=== PATIENT | female | born 1970 | race Caucasian/White ===

== ENCOUNTER → 2016-03-09 | Outpatient (CLI) | payer BC ==
[~2016-03-09] MED LIST: ALBU18002 INH; AMOX875T PO; ANTICRE6 PO; AUGMENTIN PO; CEPH500C2 PO; DALF10TA PO; GLAT1INJ INJ; HYDR-5688 PO; MULT-506 PO; MULT1CHW37 PO; ONDA4TAB10 SL; PRED10TA PO; PRED20TA PO; VNTHFA/IN INH
== END | disposition home or self-care (01) ==
LOC: C.PAPS 09:35
PROVIDERS: ATTEND Obstetrics & Gynecology
DX: Z01.419 Encounter for gynecological examination (general) (routine) without abnormal findings (principal)

== ENCOUNTER 2016-03-19 09:57 | Inpatient (IN) | payer BC, OTHER ==
[2016-03-19] VITALS (10 sets, daily range): BP systolic 82–118; BP diastolic 49–76; PULSE 109–120; TEMP 36.9–38.3; O2SAT 93–98; Ht 167.6 cm; Wt 72.7 kg
[~2016-03-19] VITALS: Ht 167.6 cm; Wt 72.7 kg
[~2016-03-19 09:57] MED LIST changes: -ALBU18002 INH; -AMOX875T PO; -ANTICRE6 PO; -AUGMENTIN PO; -CEPH500C2 PO; -DALF10TA PO; -GLAT1INJ INJ; -HYDR-5688 PO; -MULT1CHW37 PO; -ONDA4TAB10 SL; -PRED10TA PO; -PRED20TA PO
[2016-03-19] MEDS ORDERED: SODIUM CHLORIDE 0.9% 1000ML 1,000 ML IV STA ×2 (10:12→12:27)
[2016-03-19] MEDS ORDERED: MoRPHine SULFATE 10 MG/ML CARP/VIAL IV STA (10:12)
[2016-03-19] MEDS ORDERED: ONDANSETRON INJ 2 MG/ML 2 ML VIAL IV STA (10:12)
[2016-03-19 10:34] LABS: HEMATOCRIT 37.8 % (37-47); MEAN CELL VOLUME 86.5 fL (80-100); MEAN CORPUSCULAR HEMOGLOBIN 29.5 pg (25-34); MEAN CORPUSCULAR HGB CONC 34.1 g/dl (32-36); MEAN PLATELET VOLUME 9.2 fL (7.4-10.4); PLATELET COUNT 411 K/uL (130-400); RED BLOOD COUNT 4.37 M/uL (4.2-5.4); WHITE BLOOD COUNT 25.98 K/uL (4.8-10.8)
[2016-03-19] MEDS ORDERED: PIPERACILLIN/TAZOBACTAM 4.5 GM/100ML D5W IV STA (10:51)
[2016-03-19 10:57] LABS: ALT/SGPT 25 U/L (12-78); BLOOD UREA NITROGEN 12 mg/dl (7-18); CALCIUM 9.4 mg/dl (8.5-10.1); CARBON DIOXIDE 22 mmol/L (21-32); CHLORIDE 101 mmol/L (98-107); CREATININE 0.71 mg/dl (0.60-1.20); GLUCOSE 120 mg/dl (70-99); POTASSIUM 3.9 mmol/L (3.5-5.1); SODIUM 137 mmol/L (136-145)
[2016-03-19 11:00] LABS: ALKALINE PHOSPHATASE 156 U/L (45-117); AST/SGOT 15 U/L (15-37)
[2016-03-19 11:20] LABS: BASO % 0.2 %; BASO ABS # 0.05 K/uL (0-0.2); COMPLETE YES; EOS % 0.2 %; IG% 0.7 %; LYMPH % 12.3 %; NEUT % 73.6 %
--- NOTE | 2016-03-19 12:12 | DIAGNOSTIC IMAGING REPORT ---
CT SCAN OF THE PELVIS WITH IV CONTRAST CLINICAL HISTORY: Perianal pain. Abscess. COMPARISON STUDY: No priors. TECHNIQUE: Following the IV administration of 119 cc of Optiray 320, CT scan of the pelvis is performed from the pelvic inlet to the proximal femora. Images are reviewed in the axial, sagittal, and coronal planes. IV contrast was administered without complication. CT DOSE: 279.84 mGy.cm FINDINGS: The bladder, uterus, and adnexa are normal as visualized. There are small ovarian follicles. No free fluid is seen in the pelvis. There is significant induration an inflammatory stranding identified surrounding the perianal soft tissues. There is a large and thick-walled/peripherally enhancing multiloculated left-sided perianal fluid collection. This is located below the levator sling and extends from the 11:00 to the 5:00 position, and extends into the medial aspect of the left upper thigh. This complex multiloculated collection measures approximately 7 x 6 x 4.5 cm in aggregate dimension. There is surrounding inflammatory change in the perineal fat with overlying dermal thickening consistent with cellulitis. No fistulous tract is identified. The rectum and the visualized colon are normal in appearance. There is moderate colonic fecal retention. The iliac vessels appear patent. The bony pelvis is intact. No lytic or blastic lesions are seen. A prominent left pelvic sidewall lymph node image #125 measures 10 mm short axis. Prominent iliac chain nodes measure up to 7 mm short axis. A left external iliac node on image #163 measures 1.4 cm in short axis. Prominent perirectal nodes measure up to 9 mm. There is no inguinal lymphadenopathy. IMPRESSION: 1. Findings are consistent with a large and multiloculated left-sided perianal abscess with overlying cellulitis as detailed above. This measures approximately 7 x 6 x 4.5 cm. 2. No fistulous tract is identified. 3. Prominent left pelvic sidewall, perirectal, and iliac chain lymph nodes are likely on a reactive basis. Electronically signed by: Parker Winston M.D. 03/19/2016 12:11 PM Dictated Date/Time: 03/19/2016 12:02 PM
[2016-03-19] MEDS ORDERED: VANCOMYCIN 1GM/270ML NSS IV STA (12:31)
[2016-03-19 12:53] LABS: URINE APPEARANCE CLEAR (CLEAR); URINE BILIRUBIN NEG (NEG); URINE COLOR YELLOW; URINE EPITHELIAL CELL AUTO >30 /lpf (0-5); URINE NITRITE POS (NEG); URINE SPECIFIC GRAVITY 1.036 (1.000-1.030); UROBILINOGEN NEG (NEG); ZZUR CULT IF INDIC CLEAN CATCH YES
[2016-03-19 12:57] LABS: MANUAL MICROSCOPIC REQUIRED? NO; REVIEW REQ? NO
[2016-03-19] MEDS ORDERED: VANCOMYCIN INJ 1,300 MG in SODIUM CHLORIDE 0.9% 250ML 250 ML IV ONE (13:00)
[2016-03-19] MEDS ORDERED: MoRPHine SULFATE 2 MG/ML CARP IV PRN (13:15)
[2016-03-19] MEDS ORDERED: ALBUTEROL HFA 8 GM INHALER INH PRN (13:15)
--- NOTE | 2016-03-19 13:21 | History and Physical ---
History & Physical Date Mar 19, 2016. History of Present Illness The patient is a 46 year old female with complaints of Lt perianal pain Past Medical/Surgical History Medical Problems: (1) PROM (premature rupture of membranes) occasional asthma recent delivery- 2015 Additional History Hepatic Disease: No Endocrine Disorder: No Kidney Disease: No Hypertension: No Heart Disease: No Bleeding Tendencies: No Infectious Diseases: Yes Other: Lt perirectal abscess Allergies Coded Allergies: Clindamycin (Verified Allergy, Unknown, ., 01/25/16) Molds & Smuts (Verified Allergy, Unknown, MOLD/POLLEN--SNEEZING/WATERY EYES, 01/25/16) POLLEN (Verified Allergy, Unknown, MOLD/POLLEN--SNEEZING/WATERY EYES, ) Home Medications No Active Prescriptions or Reported Meds Physical Examination Skin: warm/dry, no rash Head: atraumatic Neck: supple Respiratory/Chest: no respiratory distress Cardiovascular: regular rate, rhythm Abdomen / GI: non tender Back: normal inspection Genitourinary - Female: + pertinent finding (Lt perianal, labial erythema, induration) Addiitonal Comments: Review of systems- see HPI, 10 other systems negative Diagnosis Lt perirectal abscess Plan of Treatment for Incision and drainage of perirectal abscess admit pt- 24-48 hrs atbx
[2016-03-19] MEDS: MoRPHine SULFATE 4 MG/ML 1 ML CARP\\VIAL IV PRN ×2 (14:03→16:15)
[2016-03-19] MEDS ORDERED: IV FLUIDS COMPLETED PRN (15:15)
[2016-03-19] MEDS ORDERED: NURSING VERBAL MED ORDER ONE (16:15)
[2016-03-19] MEDS: LACTATED RINGER'S 1000ML 1,000 ML IV SCH (16:15)
[2016-03-19] MEDS ORDERED: MoRPHine SULFATE 4 MG/ML 1 ML CARP\\VIAL IV SCH (16:15)
[2016-03-19] MEDS ORDERED: PIPERACILL/TAZOBAC IV 3.375 GM in DEXTROSE 5% 100ML IV ONE (16:30)
[2016-03-19] MEDS ORDERED: PIPERACILL/TAZOBAC CONSULT ACTIVE PRN (16:30)
--- NOTE | 2016-03-19 16:41 | EMERGENCY ROOM VISIT NOTE ---
History Report prepared by Calin: Hanna Blackman Under the Supervision of: Dr. Francisco Javier Alexandre D.O. First contact with patient: 10:04 Chief Complaint: WOUND INFECTION Stated Complaint: ABSCESS NEAR ANUS Nursing Triage Summary: pt c.o rectal abscess. refuses to sit sttaes difficult to walk will not sit History of Present Illness The patient is a 46 year old female who presents to the Emergency Room with complaints of a worsening rectal abscess that started one week ago. The pain is worse when she sits down. The patient was seen at the [facility] earlier today and they diagnosed her with a rectal abscess then she came into the ED. They did not do an internal rectal exam there. She has never experienced this in the past. The patient states that she has not had a bowel movement for the past 3 days, so she has been taking stool softeners. She denies fevers, but states that she has been experiencing "shaking" like she has the chills. She also denies abdominal pain, nausea, vomiting, pain or burning with urination, and vaginal bleeding or discharge. Source of History: patient Onset: one week ago Position: other (rectum) Quality: other (abscess) Timing: worsening Modifying Factors (Worsening): other (sitting) Associated Symptoms: + chills, No abdominal pain, No fevers, No nausea, No urinary symptoms (pain or burning with urination), No vomiting Note: no vaginal bleeding or discharge Review of Systems See HPI for pertinent positives & negatives. A total of 10 systems reviewed and were otherwise negative. Past Medical & Surgical Medical Problems: (1) Perirectal abscess (2) PROM (premature rupture of membranes) Family History No pertinent family history Social History Smoking Status: Never Smoker Marital Status: single Housing Status: lives with significant other Occupation Status: employed Current/Historical Medications No Active Prescriptions or Reported Meds Allergies Coded Allergies: Clindamycin (Verified Allergy, Unknown, ., 01/25/16) Molds & Smuts (Verified Allergy, Unknown, MOLD/POLLEN--SNEEZING/WATERY EYES, 01/25/16) POLLEN (Verified Allergy, Unknown, MOLD/POLLEN--SNEEZING/WATERY EYES, ) Physical Exam Vital Signs Date Time Temp Pulse Resp B/P Pulse Ox O2 Delivery O2 Flow Rate FiO2 03/19/16 14:06 78 20 116/77 95 03/19/16 11:47 112 20 107/70 91 Room Air 03/19/16 10:02 36.6 148 18 104/55 93 Room Air Physical Exam GENERAL: alert, uncomfortable appearing, well nourished, moderate distress, non- toxic EYE EXAM: normal conjunctiva OROPHARYNX: no exudate, no erythema, lips, buccal mucosa, and tongue normal and mucous membranes are moist NECK: supple, no nuchal rigidity, no adenopathy, non-tender LUNGS: Clear to auscultation. Normal chest wall mechanics HEART: no murmurs, S1 normal and S2 normal ABDOMEN: abdomen soft, non-tender, normo-active bowel sounds, no masses, no rebound or guarding. BACK: Back is symmetrical on inspection and there is no deformity, no midline tenderness, no CVA tenderness. SKIN: no rashes and no bruising UPPER EXTREMITIES: upper extremities are grossly normal. LOWER EXTREMITIES: No pitting edema. RECTAL: Erythema just anterior to rectum with tracking to inferior portion of labia majora, mild firmness, no obvious discharge, no masses appreciated on rectal exam. NEURO EXAM: Normal sensorium, cranial nerves II-XII grossly intact, normal speech, no gross weakness of arms, no gross weakness of legs. Medical Decision & Procedures ER Provider Diagnostic Interpretation: CT results have been interpreted by the radiologist and reviewed by me. CT SCAN OF THE PELVIS WITH IV CONTRAST IMPRESSION: 1. Findings are consistent with a large and multiloculated left-sided perianal abscess with overlying cellulitis as detailed above. This measures approximately 7 x 6 x 4.5 cm. 2. No fistulous tract is identified. 3. Prominent left pelvic sidewall, perirectal, and iliac chain lymph nodes are likely on a reactive basis. Electronically signed by: Parker Winston M.D. 03/19/2016 12:11 PM Dictated Date/Time: 03/19/2016 12:02 PM Laboratory Results 03/19/16 10:25 Red Blood Count 4.37, Mean Corpuscular Volume 86.5, Mean Corpuscular Hemoglobin 29.5, Mean Corpuscular Hemoglobin Concent 34.1, Mean Platelet Volume 9.2, Neutrophils (%) (Auto) 73.6, Lymphocytes (%) (Auto) 12.3, Monocytes (%) (Auto) 13.0, Eosinophils (%) (Auto) 0.2, Basophils (%) (Auto) 0.2, Neutrophils # (Auto ) 19.13, Lymphocytes # (Auto) 3.20, Monocytes # (Auto) 3.39, Eosinophils # (Auto ) 0.04, Basophils # (Auto) 0.05 03/19/16 10:25 Test 03/19/16 10:25 03/19/16 12:05 White Blood Count 25.98 K/uL (4.8-10.8) Red Blood Count 4.37 M/uL (4.2-5.4) Hemoglobin 12.9 g/dL (12.0-16.0) Hematocrit 37.8 % (37-47) Mean Corpuscular Volume 86.5 fL (80-100) Mean Corpuscular Hemoglobin 29.5 pg (25-34) Mean Corpuscular Hemoglobin Concent 34.1 g/dl (32-36) Platelet Count 411 K/uL (130-400) Mean Platelet Volume 9.2 fL (7.4-10.4) Neutrophils (%) (Auto) 73.6 % Lymphocytes (%) (Auto) 12.3 % Monocytes (%) (Auto) 13.0 % Eosinophils (%) (Auto) 0.2 % Basophils (%) (Auto) 0.2 % Neutrophils # (Auto) 19.13 K/uL (1.4-6.5) Lymphocytes # (Auto) 3.20 K/uL (1.2-3.4) Monocytes # (Auto) 3.39 K/uL (0.11-0.59) Eosinophils # (Auto) 0.04 K/uL (0-0.5) Basophils # (Auto) 0.05 K/uL (0-0.2) RDW Standard Deviation 42.6 fL (36.4-46.3) RDW Coefficient of Variation 13.4 % (11.5-14.5) Immature Granulocyte % (Auto) 0.7 % Immature Granulocyte # (Auto) 0.17 K/uL (0.00-0.02) Anion Gap 14.0 mmol/L (3-11) Est Creatinine Clear Calc Drug Dose 94.6 ml/min Estimated GFR () 120.1 Estimated GFR (Non- 103.6 BUN/Creatinine Ratio 17.0 (10-20) Calcium Level 9.4 mg/dl (8.5-10.1) Total Bilirubin 0.2 mg/dl (0.2-1) Direct Bilirubin < 0.1 mg/dl (0-0.2) Aspartate Amino Transf (AST/SGOT) 15 U/L (15-37) Alanine Aminotransferase (ALT/SGPT) 25 U/L (12-78) Alkaline Phosphatase 156 U/L (45-117) Total Protein 8.4 gm/dl (6.4-8.2) Albumin 3.0 gm/dl (3.4-5.0) Lipase 111 U/L (73-393) Urine Color YELLOW Urine Appearance CLEAR (CLEAR) Urine pH 5.0 (4.5-7.5) Urine Specific [place] 1.036 (1.000-1.030) Urine Protein NEG (NEG) Urine Glucose (UA) NEG (NEG) Urine Ketones NEG (NEG) Urine Occult Blood 1+ (NEG) Urine Nitrite POS (NEG) Urine Bilirubin NEG (NEG) Urine Urobilinogen NEG (NEG) Urine Leukocyte Esterase MODERATE (NEG) Urine WBC (Auto) >30 /hpf (0-5) Urine RBC (Auto) 0-4 /hpf (0-4) Urine Hyaline Casts (Auto) 1-5 /lpf (0-5) Urine Epithelial Cells (Auto) >30 /lpf (0-5) Urine Bacteria (Auto) 2+ (NEG) Urine Test NEG (NEG) Laboratory results per my review. Medications Administered Medications (Trade) Dose Ordered Sig/Ranjeet Route Start Time Stop Time Status Last Admin Dose Admin Sodium Chloride (Nss 1000ml) 1,000 ml @ 999 mls/hr Q1H1M STAT IV 03/19/16 10:12 03/19/16 11:12 DC 03/19/16 10:28 999 MLS/HR Ondansetron HCl (Zofran Inj) 4 mg NOW STAT IV 03/19/16 10:12 03/19/16 10:15 DC 03/19/16 10:27 4 MG Morphine Sulfate (MoRPHine SULFATE INJ) 6 mg NOW STAT IV 03/19/16 10:12 03/19/16 10:15 DC 03/19/16 10:28 6 MG Piperacillin Sod/ Tazobactam Sod 4.5 gm 4.5 gm NOW STAT IV 03/19/16 10:51 03/19/16 10:52 DC 03/19/16 11:02 4.5 GM Sodium Chloride 1,000 ml @ 999 mls/hr Q1H1M STAT IV 03/19/16 12:27 03/19/16 13:27 DC 03/19/16 12:31 999 MLS/HR Vancomycin HCl/ Sodium Chloride (Vancomycin Inj/ Nss 250ml) 276 ml @ 125 mls/hr NOW ONCE IV 03/19/16 13:00 03/19/16 15:12 DC 03/19/16 13:21 125 MLS/HR Morphine Sulfate 4 mg 4 mg Q4H PRN IV 03/19/16 13:15 04/02/16 13:14 03/19/16 16:15 4 MG Lactated Ringer's (Lr 1000ml) 1,000 ml @ 80 mls/hr [id number] IV 03/19/16 14:14 04/18/16 14:13 03/19/16 16:15 80 MLS/HR ED Course ED COURSE: Vital signs were reviewed and showed tachycardia. The patients medical record was reviewed The above diagnostic studies were performed and reviewed. ED treatments and interventions as stated above. 1006: The patient was evaluated in room B12. A complete history and physical examination was performed. 1012: Ordered Morphine Sulfate 6 mg IV, Zofran 4 mg IV, Sodium Chloride 1000 ml @ 999 mls/hr IV 1035: I reassessed the patient. Her pain has improved. 1051: Ordered Zosyn 4.5 gm IV 1104: I reevaluated the patient. She informed me that she gave in December. 1207: I reassessed the patient. She is comfortable and does not want any more pain medicine. 1227: Ordered Sodium Chloride 1000 ml @ 999 mls/hr IV 1229: I reviewed the patient's case with Dr. Cantrell - General Surgery. He will evaluate the patient for further management. 1231: Ordered Vancomycin HCl 1300 gm IV 1242: Upon reevaluation, the patient is resting comfortably. I discussed my findings with the patient and she understands and agrees with the treatment plan. Dr. Cantrell is at bedside. Based on the patients age, coexisting illnesses, exam and lab findings the decision to treat as an inpatient was made. The patient remained stable while under my care. The patient will be evaluated for further management. Medical Decision Differential diagnosis includes etiologies such as cellulitis, rectal vs perirectal abscess, MRSA infection, DVT, necrotizing fasciitis, dermatitis, drug eruption, as well as others were entertained. Patient is a 46-year-old female who presents the ER for severe pain on her left gluteus. This is been present for the past week. It has been becoming more painful and erythematous; she saw by her PCP and referred into the ER. Upon presentation she is tachycardic with heart rate in the 140s. She has a leukocytosis of 25,000. On exam she does appear to have a large rectal abscess which tracks from around the rectum anteriorly to the labia majora. IV was established and she was given a bolus normal saline along with zosyn and vancomycin. CT of the pelvis shows a 7 x 7 cm by loculated abscess. I discussed this with general surgery who evaluated her in the ER. It was recommended at that time to take her to the OR for incision and drainage. Patient was updated at bedside and remained stable while in the ER. Consults Time Called: 1224 Consulting Physician: Dr. Cantrell - General Surgery Returned Call: [phone] I reviewed the patient's case with Dr. Óscar Trimble Surgery. He will evaluate the patient for further management. Impression Primary Impression: Sepsis Additional Impression: Perirectal abscess Scribe Attestation The scribe's documentation has been prepared under my direction and personally reviewed by me in its entirety. I confirm that the note above accurately reflects all work, treatment, procedures, and medical decision making performed by me. Departure Information Dispostion Being Evaluated By Surgeon Prescriptions No Active Prescriptions or Reported Meds Referrals Shiela Spangler DO (PCP) Patient Instructions My [facility] Problem Qualifiers Primary Impression: Sepsis Sepsis type: sepsis due to unspecified organism Qualified Codes: A41.9 - Sepsis, unspecified organism
[2016-03-19] MEDS ORDERED: VANCOMYCIN CONSULT ACTIVE PRN (16:45)
--- NOTE | 2016-03-19 16:52 | Pharmacy Progress Note ---
Pharmacy Antibiotic Consult Date of Service: Mar 19, 2016. Pharmacy Dosing Scope Pharmacy is consulted to initiate Vanco/Zosyn IV dosing therapy, order appropriate labs and adjust drug dose/frequency. Subjective The patient is a 46 year old female admitted on Mar 19, 2016 at 14:33. Objective Height (Feet): 5 Height (Inches): 6.00 Weight (Kilograms): 63.600 Lab Results (24hrs): Item Value Date Time Est Creatinine Clear Calc Drug Dose 94.6 ml/min 03/19/16 1025 Creatinine 0.71 mg/dl 03/19/16 1025 Laboratory Tests Test 03/19/16 10:25 BUN/Creatinine Ratio 17.0 Blood Urea Nitrogen 12 mg/dl Creatinine 0.71 mg/dl White Blood Count 25.98 K/uL Red Blood Count 4.37 M/uL Hemoglobin 12.9 g/dL Hematocrit 37.8 % Mean Corpuscular Volume 86.5 fL Mean Corpuscular Hemoglobin 29.5 pg Mean Corpuscular Hemoglobin Concent 34.1 g/dl Platelet Count 411 K/uL Mean Platelet Volume 9.2 fL Neutrophils (%) (Auto) 73.6 % Lymphocytes (%) (Auto) 12.3 % Monocytes (%) (Auto) 13.0 % Eosinophils (%) (Auto) 0.2 % Basophils (%) (Auto) 0.2 % Neutrophils # (Auto) 19.13 K/uL Lymphocytes # (Auto) 3.20 K/uL Monocytes # (Auto) 3.39 K/uL Eosinophils # (Auto) 0.04 K/uL Basophils # (Auto) 0.05 K/uL Micro Results: Item Value Date Time Urine Culture Received 03/19/16 1205 Urine , Clean Catch Pending Assessment & Plan Pt is a 46yo F p/w severe pxn of her left gluteus, tachycardia, leukocytosis w/ left shift. Per ED notes she appears to have a rectal abscess. She is now being empirically treated with IV Vanco/Zosyn. Pt population p'kinetics: t1/2=8.3hrs , ke=0.0833. UC are pending. Pt is set to go to the OR for drainage, will see what those c/s's yield before de-escalating. Vanco * Loading dose: Vanco 1300mg (20mg/kg) IV X 1 dose then received in ED @1321: * Vanco 1000mg(15mg/kg) IV every 10 hours. * Goal trough level estimate: between 15 - 20 mcg/mL until c/s's result then may consider a lower trough goal range to ensure pt not bacteremic or UTI. * trough level has been ordered for: this will be prior to the 4th dose Zosyn: * Received osyn 4.5g 30 min infsn in ED @1102 * Set to receive EI Zosyn 3.375g q8, appropriate for eCrCl>20cc/min and clinical status. Pharmacy will continue to follow and will adjust dose/frequency as necessary. Thank you
[2016-03-19] MEDS: PIPERACILL/TAZOBAC IV 3.375 GM in DEXTROSE 5% 100ML 100 ML IV SCH (17:00)
[2016-03-19] MEDS ORDERED: ATROPINE SULFATE 0.1 MG/ML 5ML SYR IV PRN (18:00)
[2016-03-19] MEDS ORDERED: LABETALOL HCL IV 5 MG/ML 20ML IV PRN (18:00)
[2016-03-19] MEDS ORDERED: MEPERIDINE HCL 25 MG/ML CARP IV PRN (18:00)
[2016-03-19] MEDS ORDERED: MIDAZOLAM HCL 1 MG/ML 2ML VIAL ONE (18:00)
[2016-03-19] MEDS ORDERED: FENTANYL CITRATE INJ 50 MCG/1 ML 2 ML VIAL IV PRN (18:00)
[2016-03-19] MEDS ORDERED: ONDANSETRON INJ 2 MG/ML 2 ML VIAL IV PRN ×2 (18:00→19:00)
[2016-03-19] MEDS ORDERED: EpHEDrine SULFATE INJ 50 MG/ML AMP IV PRN (18:00)
[2016-03-19] MEDS ORDERED: HYDROmorphone INJ 1 MG/ML SYR IV PRN ×2 (18:00→19:00)
[2016-03-19] MEDS ORDERED: FENTANYL CITRATE INJ 50 MCG/1 ML 2 ML VIAL ONE ×2 (18:01→18:26)
[2016-03-19] MEDS ORDERED: PROPOFOL IV EMULSION 10 MG/ML 20 ML VIAL IV ONE (18:19)
[2016-03-19] MEDS ORDERED: LIDOCAINE HCL 2% 2 ML VIAL (20MG/ML) ONE (18:19)
[2016-03-19] MEDS ORDERED: ONDANSETRON INJ 2 MG/ML 2 ML VIAL ONE (18:22)
--- NOTE | 2016-03-19 18:47 | [facility] Operative Report ---
Operative Report Operative Date Mar 19, 2016. Pre-Operative Diagnosis Left perirectal abscess Post-Operative Diagnosis same Procedure(s) Performed incision and drainage perirectal abscess Surgeon Dr. Cantrell Pill Coater Surgeon(s) None Estimated Blood Loss 15ml Findings deep cavity w/ significant purulent fluid Specimens Culture #1: Perirectal abscess for routine culture & sensitivity, anaerobic/anaerobic Drains guillermo Anesthesia gen Complication(s) None Disposition Recovery Room / PACU I attest to the content of the Intraoperative Record and any orders documented therein. Any exceptions are noted below.
[2016-03-19] MEDS ORDERED: HYDROmorphone INJ 0.5 MG/0.5 ML SYR IV PRN (19:00)
[2016-03-19] MEDS ORDERED: PROMETHAZINE HCL INJ 25 MG in SODIUM CHLORIDE 0.9% 50ML 50 ML IV PRN (19:00)
[2016-03-19] MEDS ORDERED: HYDROCODONE/ACETAMOPHEN 5/325MG TAB PO PRN ×2 (19:00)
[2016-03-19] MEDS ORDERED: KETOROLAC TROMETHAMINE 30 MG/ML VIAL ONE (19:01)
[2016-03-19] MEDS ORDERED: BUPIVACAINE 0.5 % 5 MG/1 ML MPF 30ML VIAL INJ ONE (19:04)
--- NOTE | 2016-03-19 19:26 | Anesthesiology Progress Note ---
Anesthesia Post Op Note Date & Time Mar 19, 2016 at 19:26 Vital Signs Pain Intensity: 1 Vital Signs Past 12 Hours Date Time Temp Pulse Resp B/P Pulse Ox O2 Delivery O2 Flow Rate FiO2 03/19/16 19:20 118 18 109/65 99 Nasal Cannula 3 03/19/16 19:10 109 14 120/73 99 Nasal Cannula 3 03/19/16 19:00 115 14 116/73 99 Nasal Cannula 3 03/19/16 18:50 38.4 122 14 120/66 99 Nasal Cannula 3 03/19/16 17:09 36.9 110 16 118/76 95 Room Air 03/19/16 14:06 78 20 116/77 95 03/19/16 11:47 112 20 107/70 91 Room Air 03/19/16 10:02 36.6 148 18 104/55 93 Room Air Notes Mental Status: alert / awake / arousable, participated in evaluation Pt Amnestic to Procedure: Yes Nausea / Vomiting: adequately controlled Pain: adequately controlled Airway Patency, RR, SpO2: stable & adequate BP & HR: stable & adequate Hydration State: stable & adequate Anesthetic Complications: no major complications apparent
[2016-03-19] MEDS ORDERED: ACETAMINOPHEN 325 MG TAB PO PRN (19:30)
--- NOTE | 2016-03-19 19:35 | OPERATIVE REPORT ---
DATE OF OPERATION: 03/19/2016 NAME OF OPERATION: Incision and drainage of perirectal abscess, complex. PREOPERATIVE DIAGNOSIS: Perirectal abscess. POSTOPERATIVE DIAGNOSIS: Same. STAFF SURGEON: Aden Cantrell MD ANESTHESIA: General with 0.5% plain Marcaine. PROCEDURE: The patient was brought in the operating room and placed on the operating table in supine position. Her legs were then placed into stirrups. Her perineum prepped and draped in usual fashion. She had significant induration and fluctuance in the left side perianal area. On CT scan the abscess cavity was approximately 7.5 cm in depth up to the rectum. Incision was made after using 0.5% plain Marcaine approximately 2 cm in length with encountering significant amount of purulent fluid which was sent for culture. The cavity was then probed with my finger and septations broken up, it was then irrigated with saline solution and then a Sera drain placed deep into the cavity, secured to the skin using 4-0 nylon suture and then a bulky dressing applied. The patient was transferred to recovery room in stable condition. I attest to the content of the Intraoperative Record and any orders documented therein. Any exceptio ns are noted below.
[2016-03-19] MEDS ORDERED: PROMETHAZINE HCL INJ 12.5 MG in SODIUM CHLORIDE 0.9% 50ML 50 ML IV PRN (19:45)
[2016-03-19] MEDS: VANCOMYCIN INJ 1,000 MG in SODIUM CHLORIDE 0.9% 250ML 250 ML IV SCH (20:03)
[2016-03-19] MEDS: METRONIDAZOLE / NSS 500 MG in PREMIXED NSS 100 ML IV SCH (20:03)
[2016-03-19] MEDS: DOCUSATE SODIUM/SENNA 50/8.6MG TAB PO SCH (20:39)
[2016-03-19] MEDS ORDERED: PIPERACILL/TAZOBAC IV 3.375 GM in DEXTROSE 5% 100ML 100 ML IV SCH ×4 (22:00)
[2016-03-20] VITALS (13 sets, daily range): BP systolic 88–112; BP diastolic 56–73; PULSE 79–112; TEMP 36.6–37.1; O2SAT 82–98
[2016-03-20] MEDS: PIPERACILL/TAZOBAC IV 3.375 GM in DEXTROSE 5% 100ML 100 ML IV SCH ×3 (01:28→17:21)
[2016-03-20] MEDS: KETOROLAC TROMETHAMINE 30 MG/ML VIAL IV. SCH ×4 (01:28→18:55)
[2016-03-20] MEDS: METRONIDAZOLE / NSS 500 MG in PREMIXED NSS 100 ML IV SCH ×3 (04:02→20:25)
[2016-03-20] MEDS ORDERED: LACTATED RINGER'S 1000ML 1,000 ML IV SCH (05:15)
--- NOTE | 2016-03-20 05:30 | Surgery Progress Note ---
Surgery Progress Note Date of Service Mar 20, 2016. Subjective Post OP Day: 1 feeling better- less pain mild tachy, awake , alert Objective Vital Signs: Date Time Temp Pulse Resp B/P Pulse Ox O2 Delivery O2 Flow Rate FiO2 03/20/16 03:05 36.9 97 16 95/61 93 Nasal Cannula 2.0 03/19/16 23:23 37.6 109 16 88/53 94 Nasal Cannula 2.0 03/19/16 22:48 37.6 120 14 82/49 94 Nasal Cannula 2.0 03/19/16 22:34 94/60 03/19/16 22:31 37.5 116 16 83/51 94 Nasal Cannula 2.0 03/19/16 21:39 37.2 119 16 91/54 93 Nasal Cannula 2.0 03/19/16 20:45 37.4 116 18 89/56 94 Nasal Cannula 2.0 03/19/16 20:15 37.4 112 16 100/63 94 Nasal Cannula 2.0 03/19/16 19:45 38.3 117 16 100/62 98 Nasal Cannula 2.0 03/19/16 19:40 96 Nasal Cannula 2.0 03/19/16 19:30 38.4 113 18 115/68 99 Nasal Cannula 3 03/19/16 19:20 118 18 109/65 99 Nasal Cannula 3 03/19/16 19:10 109 14 120/73 99 Nasal Cannula 3 03/19/16 19:00 115 14 116/73 99 Nasal Cannula 3 03/19/16 18:50 38.4 122 14 120/66 99 Nasal Cannula 3 03/19/16 17:09 36.9 110 16 118/76 95 Room Air 03/19/16 14:06 78 20 116/77 95 03/19/16 11:47 112 20 107/70 91 Room Air 03/19/16 10:02 36.6 148 18 104/55 93 Room Air General Appearance: no apparent distress Respiratory/Chest: no respiratory distress Cardiovascular: + tachycardia (reg rhythm) Incision(s): drainage (expected) Laboratory Results: Results Past 24 Hours Test 03/19/16 10:25 03/19/16 12:05 Range/Units White Blood Count 25.98 4.8-10.8 K/uL Red Blood Count 4.37 4.2-5.4 M/uL Hemoglobin 12.9 12.0-16.0 g/dL Hematocrit 37.8 37-47 % Mean Corpuscular Volume 86.5 80-100 fL Mean Corpuscular Hemoglobin 29.5 25-34 pg Mean Corpuscular Hemoglobin Concent 34.1 32-36 g/dl Platelet Count 411 130-400 K/uL Mean Platelet Volume 9.2 7.4-10.4 fL Neutrophils (%) (Auto) 73.6 % Lymphocytes (%) (Auto) 12.3 % Monocytes (%) (Auto) 13.0 % Eosinophils (%) (Auto) 0.2 % Basophils (%) (Auto) 0.2 % Neutrophils # (Auto) 19.13 1.4-6.5 K/uL Lymphocytes # (Auto) 3.20 1.2-3.4 K/uL Monocytes # (Auto) 3.39 0.11-0.59 K/uL Eosinophils # (Auto) 0.04 0-0.5 K/uL Basophils # (Auto) 0.05 0-0.2 K/uL RDW Standard Deviation 42.6 36.4-46.3 fL RDW Coefficient of Variation 13.4 11.5-14.5 % Immature Granulocyte % (Auto) 0.7 % Immature Granulocyte # (Auto) 0.17 0.00-0.02 K/uL Sodium Level 137 136-145 mmol/L Potassium Level 3.9 3.5-5.1 mmol/L Chloride Level 101 98-107 mmol/L Carbon Dioxide Level 22 21-32 mmol/L Anion Gap 14.0 3-11 mmol/L Blood Urea Nitrogen 12 7-18 mg/dl Creatinine 0.71 0.60-1.20 mg/dl Est Creatinine Clear Calc Drug Dose 94.6 ml/min Estimated GFR () 120.1 Estimated GFR (Non- 103.6 BUN/Creatinine Ratio 17.0 10-20 Random Glucose 120 70-99 mg/dl Calcium Level 9.4 8.5-10.1 mg/dl Total Bilirubin 0.2 0.2-1 mg/dl Direct Bilirubin < 0.1 0-0.2 mg/dl Aspartate Amino Transf (AST/SGOT) 15 15-37 U/L Alanine Aminotransferase (ALT/SGPT) 25 12-78 U/L Alkaline Phosphatase 156 45-117 U/L Total Protein 8.4 6.4-8.2 gm/dl Albumin 3.0 3.4-5.0 gm/dl Lipase 111 73-393 U/L Urine Color YELLOW Urine Appearance CLEAR CLEAR Urine pH 5.0 4.5-7.5 Urine Specific [place] 1.036 1.000-1.030 Urine Protein NEG NEG Urine Glucose (UA) NEG NEG Urine Ketones NEG NEG Urine Occult Blood 1+ NEG Urine Nitrite POS NEG Urine Bilirubin NEG NEG Urine Urobilinogen NEG NEG Urine Leukocyte Esterase MODERATE NEG Urine WBC (Auto) >30 0-5 /hpf Urine RBC (Auto) 0-4 0-4 /hpf Urine Hyaline Casts (Auto) 1-5 0-5 /lpf Urine Epithelial Cells (Auto) >30 0-5 /lpf Urine Bacteria (Auto) 2+ NEG Urine Test NEG NEG Microbiology Results 03/19/16 Urine Culture, Received Pending 03/19/16 Gram Stain, Received Pending 03/19/16 Bacterial Culture, Received Pending Assessment & Plan 03/20/16- s/p I/D Lg perirectal, deep abscess- mild septic parameters- clinically she looks ok- no distress- add IV fluid , cont IV atbx, calix for now
[2016-03-20] MEDS: VANCOMYCIN INJ 1,000 MG in SODIUM CHLORIDE 0.9% 250ML 250 ML IV SCH ×2 (06:03→17:20)
[2016-03-20 06:35] LABS: MEAN CELL VOLUME 88.1 fL (80-100); MEAN CORPUSCULAR HEMOGLOBIN 29.8 pg (25-34); MEAN CORPUSCULAR HGB CONC 33.9 g/dl (32-36); MEAN PLATELET VOLUME 9.2 fL (7.4-10.4); PLATELET COUNT 314 K/uL (130-400); RED BLOOD COUNT 3.52 M/uL (4.2-5.4); WHITE BLOOD COUNT 22.36 K/uL (4.8-10.8)
[2016-03-20 06:46] LABS: INR 1.1 (0.9-1.1); PROTHROMBIN TIME (PATIENT) 11.7 SECONDS (9.0-12.0)
[2016-03-20 07:02] LABS: BUN/CREATININE RATIO 14.3 (10-20); CALCIUM 8.4 mg/dl (8.5-10.1); CREATININE 0.74 mg/dl (0.60-1.20)
[2016-03-20] MEDS: LACTATED RINGER'S 1000ML 1,000 ML IV SCH ×2 (07:44→14:49)
[2016-03-20] MEDS ORDERED: VANCOMYCIN CONSULT ACTIVE PRN (09:08)
--- NOTE | 2016-03-20 09:30 | History and Physical ---
History & Physical pt seen and examed, d/w PA about [facility] points of dignosis and care plan, agreed current management, for details please referral to PA's note I was called to see patient for the consultation because of possible sepsis, 46-year-old with history of asthma and has recent delivered of baby 1 months ago was admitted to Dr. Cantrell service because left perirectal abscess, patient had I&D done yesterday, per report from surgeon the abscess was severe. Patient developed hypoxic, oxygen level as 86% in room air , spiking fever, and hypotensive blood pressure at 80s Surgeon has started IV fluid, patient is on Zosyn and Flexeril When I interviewed with the patient she is awake and alert and orientated, speak full sentence, respiratory rate 18 , heart rate at 80, regular rhythm S1- S2 bilateral lower decrease significant decreased breathing sounds, abdomen was soft, Bilateral hands and fingers mild rubra, possible is new to her, lower extremity no swelling Patient's white count is 22,000 today Basic on the above information was SIRS score is 2, qSOFA score is 1 , with obvious source of infection, patient possible is developing sepsis, I will send blood culture, increased the IV fluid to 150, give Nebulizer treatment, check lactic acid level, add vancomycin to current antibiotics for gram-positive coverage, follow-up chest x-ray and UA I will transfer patient to shelter monitor from because patient may have developing sepsis discussed with primary team.
[2016-03-20] MEDS: HEPARIN SOD 5000 UNIT/0.5 ML CARP SQ SCH ×2 (09:48→22:04)
[2016-03-20] MEDS: DOCUSATE SODIUM/SENNA 50/8.6MG TAB PO SCH ×2 (09:50→22:09)
[2016-03-20] MEDS ORDERED: ALBUT/IPRATROP 3MG/0.5MG NEB 3 ML VIAL INH PRN (10:00)
--- NOTE | 2016-03-20 10:39 | Medical Consult ---
Consultation Date of Consultation: Mar 20, 2016. Attending Physician: Aden Cantrell M.D. Reason for Consultation: Hypotension, hypoxic, possible sepsis History of Present Illness This is a 46 y/o female with a history of multiple sclerosis, asthma, allergic bronchopulmonary aspergillosis, s/p vaginal delivery 01/26/16 who presents s/p perianal abscess I&D with Dr. Cantrell on 03/19 with hypotension, hypoxia, and possible sepsis. The patient had presented to the ED on 03/19 with left gluteus pain and was found to have a large, loculated left perianal abscess with overlying cellulitis. She was taken for an I&D with Dr. Cantrell and admitted for 24-28 hours IV antibiotics. The patient has been tachycardic throughout her entire stay. The patient's blood pressure began to drop last night. Last evening she also developed fevers and chills, although that has resolved this morning. The patient did become hypoxic this morning when weaned off oxygen, dropping as low as 83% on room air. Saturations returned to low 90s promptly after 2L NC was put back on. The patient admits to a wet, productive cough with white sputum, but she states that this is a chronic cough secondary to the aspergillosis and is not new. She also admits to tingling in her hands which is again a chronic condition secondary to her MS. She feels somewhat weak and fatigued and has some mild pain in her perianal region, although the pain is greatly improved compared to when she first came to the ED. The patient has a Balderas catheter in place and just had a small bowel movement prior to examination. The patient currently denies fevers, chills, sweats, chest pain, palpitations, claudication, wheezing, shortness of breath, nausea, vomiting, abdominal pain, dysuria, hematuria, urinary retention, and paralysis. Past Medical/Surgical History Medical Problems: (1) Sepsis Status: Acute Perianal abscess--acute S/p I&D 03/19/16 Multiple sclerosis Asthma Allergic bronchopulmonary aspergillosis S/p vaginal delivery 01/26/16 Family History Diabetes mellitus Hypothyroidism Non-Hodgkin's lymphoma Tuberculosis Social History Smoking Status: Never Smoker Smokeless Tobacco Use: No Alcohol Use: occasionally Drug Use: none Marital Status: Housing Status: lives with family ( and son) Occupation Status: employed Allergies Coded Allergies: Clindamycin (Verified Allergy, Unknown, ., 01/25/16) Molds & Smuts (Verified Allergy, Unknown, MOLD/POLLEN--SNEEZING/WATERY EYES, 01/25/16) POLLEN (Verified Allergy, Unknown, MOLD/POLLEN--SNEEZING/WATERY EYES, ) Current Inpatient Medications Current Inpatient Medications Medications (Trade) Dose Ordered Sig/Ranjeet Route Start Time Stop Time Status Last Admin Dose Admin Albuterol 2 puffs 2 puffs Q4 PRN INH 03/19/16 13:15 04/18/16 13:14 Lactated Ringer's (Lr 1000ml) 1,000 ml @ 150 mls/hr Q6H40M IV 03/19/16 14:14 04/18/16 14:13 03/20/16 07:44 80 MLS/HR Miscellaneous (Iv Fluids Completed) 1 ea PRN PRN N/A 03/19/16 15:15 03/19/17 15:14 Piperacillin Sod/ Tazobactam Sod 1 ea 1 ea UD PRN N/A 03/19/16 16:30 04/18/16 16:29 Piperacillin Sod/ Tazobactam Sod 3.375 gm/Dextrose 115 ml @ 28.75 mls/ hr Q8H IV 03/19/16 17:00 03/29/16 16:59 03/20/16 09:51 28.75 MLS/HR Vancomycin HCl/ Sodium Chloride (Vancomycin Inj/ Nss 250ml) 270 ml @ 125 mls/hr Q10H IV 03/19/16 20:00 03/29/16 19:59 03/20/16 06:03 125 MLS/HR Vancomycin HCl (Consult) 1 ea UD PRN N/A 03/19/16 16:45 04/18/16 16:44 Hydromorphone HCl (Dilaudid Inj) 1 mg Q3H PRN IV 03/19/16 19:00 04/02/16 18:59 Acetaminophen/ Hydrocodone Bitart ([place] 5/325 Tab) 1 tab Q4 PRN PO 03/19/16 19:00 04/02/16 18:59 Acetaminophen/ Hydrocodone Bitart 2 tab 2 tab Q4 PRN PO 03/19/16 19:00 04/02/16 18:59 Promethazine HCl/ Sodium Chloride (Phenergan Inj/ Nss 50ml) 51 ml @ 204 mls/hr Q6H PRN IV 03/19/16 19:00 04/18/16 18:59 Senna/Docusate Sodium (Senokot S Tab) 1 tab BID PO 03/19/16 21:00 04/18/16 20:59 03/20/16 09:50 1 TAB Ketorolac Tromethamine (Toradol Inj) 30 mg Q6H IV. 03/20/16 01:00 03/24/16 18:59 03/20/16 06:03 30 MG Ondansetron HCl 4 mg 4 mg Q6H PRN IV 03/19/16 19:00 04/18/16 18:59 Metronidazole/Prmx (Flagyl / Nss/ Premixed Nss) 100 ml @ 100 mls/hr Q8H IV 03/19/16 20:00 03/29/16 19:59 03/20/16 04:02 100 MLS/HR Acetaminophen 650 mg 650 mg Q4H PRN PO 03/19/16 19:30 04/18/16 19:29 Promethazine HCl/ Sodium Chloride (Phenergan Inj/ Nss 50ml) 50.5 ml @ 204 mls/hr Q6H PRN IV 03/19/16 19:45 04/18/16 19:44 Heparin Sodium (Porcine) (Heparin Sq 5000 Unit/0.5ml) 5,000 unit Q12H SQ 03/20/16 09:00 04/19/16 08:59 03/20/16 09:48 5,000 UNIT Vancomycin HCl (Consult) 1 ea UD PRN N/A 03/20/16 09:08 04/19/16 09:07 Albuterol/ Ipratropium (Duoneb) 3 ml QIDR INH 03/20/16 12:00 04/19/16 11:59 Albuterol/ Ipratropium (Duoneb) 3 ml Q2H PRN INH 03/20/16 10:00 04/19/16 09:59 Review of Systems Constitutional: + fatigue, + weakness, No chills, No fever, No sweats Eyes: No diplopia, No eye pain, No worsening of vision ENT: No hearing loss, No sore throat, No tinnitus Respiratory: + cough (chronic, secondary to aspergillosis), + sputum, No shortness of breath, No wheezing Cardiovascular: No chest pain, No claudication, No palpitations Abdomen: No nausea, No pain, No vomiting Musculoskeletal: No calf pain, No joint pain, No muscle pain Genitourinary - Female: No dysuria, No hematuria, No urinary retention Neurologic: + numbness/tingling (in hands bilaterally secondary to multiple sclerosis), No paralysis, No weakness Integumentary: No color change, No itch, No rash Physical Exam Date Time Temp Pulse Resp B/P Pulse Ox O2 Delivery O2 Flow Rate FiO2 03/20/16 09:34 100 91 Nasal Cannula 2.0 03/20/16 09:34 112 82 Room Air 03/20/16 07:08 93 Nasal Cannula 2.0 03/20/16 07:05 36.8 85 18 88/56 86 Room Air 03/20/16 03:05 36.9 97 16 95/61 93 Nasal Cannula 2.0 03/19/16 23:23 37.6 109 16 88/53 94 Nasal Cannula 2.0 03/19/16 22:48 37.6 120 14 82/49 94 Nasal Cannula 2.0 03/19/16 22:34 94/60 03/19/16 22:31 37.5 116 16 83/51 94 Nasal Cannula 2.0 03/19/16 21:39 37.2 119 16 91/54 93 Nasal Cannula 2.0 03/19/16 20:45 37.4 116 18 89/56 94 Nasal Cannula 2.0 03/19/16 20:15 37.4 112 16 100/63 94 Nasal Cannula 2.0 03/19/16 19:45 38.3 117 16 100/62 98 Nasal Cannula 2.0 03/19/16 19:40 96 Nasal Cannula 2.0 03/19/16 19:30 38.4 113 18 115/68 99 Nasal Cannula 3 03/19/16 19:20 118 18 109/65 99 Nasal Cannula 3 03/19/16 19:10 109 14 120/73 99 Nasal Cannula 3 03/19/16 19:00 115 14 116/73 99 Nasal Cannula 3 03/19/16 18:50 38.4 122 14 120/66 99 Nasal Cannula 3 03/19/16 17:09 36.9 110 16 118/76 95 Room Air 03/19/16 14:06 78 20 116/77 95 03/19/16 11:47 112 20 107/70 91 Room Air 03/19/16 10:02 36.6 148 18 104/55 93 Room Air General Appearance: WD/WN, + mild distress (mild emotional distress, pt states she misses her baby and is feeling overwhelmed) Head: normocephalic, atraumatic Eyes: normal inspection, PERRL, EOMI ENT: normal ENT inspection, hearing grossly normal, pharynx normal Neck: supple, no JVD, trachea midline Respiratory/Chest: no respiratory distress, no accessory muscle use, + decreased breath sounds (poor air movement), + wheezing (scattered throughout but especially in bases bilaterally) Cardiovascular: no gallop, no murmur, + tachycardia, + abnormal rhythm ( regular rate with some pauses) Abdomen/GI: normal bowel sounds, non tender, soft Extremities/Musculoskelatal: normal inspection, no calf tenderness, no pedal edema Neurologic/Psych: alert, oriented x 3, + pertinent finding (anxious, cries easily, states she feels overwhelmed) Skin: normal color, warm/dry, no rash Laboratory Results Last 24 Hours Test 03/19/16 10:25 03/19/16 12:05 03/20/16 06:12 03/20/16 08:57 White Blood Count 25.98 K/uL 22.36 K/uL Red Blood Count 4.37 M/uL 3.52 M/uL Hemoglobin 12.9 g/dL 10.5 g/dL Hematocrit 37.8 % 31.0 % Mean Corpuscular Volume 86.5 fL 88.1 fL Mean Corpuscular Hemoglobin 29.5 pg 29.8 pg Mean Corpuscular Hemoglobin Concent 34.1 g/dl 33.9 g/dl Platelet Count 411 K/uL 314 K/uL Mean Platelet Volume 9.2 fL 9.2 fL Neutrophils (%) (Auto) 73.6 % Lymphocytes (%) (Auto) 12.3 % Monocytes (%) (Auto) 13.0 % Eosinophils (%) (Auto) 0.2 % Basophils (%) (Auto) 0.2 % Neutrophils # (Auto) 19.13 K/uL Lymphocytes # (Auto) 3.20 K/uL Monocytes # (Auto) 3.39 K/uL Eosinophils # (Auto) 0.04 K/uL Basophils # (Auto) 0.05 K/uL RDW Standard Deviation 42.6 fL 44.5 fL RDW Coefficient of Variation 13.4 % 13.7 % Immature Granulocyte % (Auto) 0.7 % Immature Granulocyte # (Auto) 0.17 K/uL Sodium Level 137 mmol/L 139 mmol/L Potassium Level 3.9 mmol/L 4.0 mmol/L Chloride Level 101 mmol/L 104 mmol/L Carbon Dioxide Level 22 mmol/L 27 mmol/L Anion Gap 14.0 mmol/L 8.0 mmol/L Blood Urea Nitrogen 12 mg/dl 11 mg/dl Creatinine 0.71 mg/dl 0.74 mg/dl Est Creatinine Clear Calc Drug Dose 94.6 ml/min 99.0 ml/min Estimated GFR () 120.1 114.2 Estimated GFR (Non- 103.6 98.5 BUN/Creatinine Ratio 17.0 14.3 Random Glucose 120 mg/dl 93 mg/dl Calcium Level 9.4 mg/dl 8.4 mg/dl Total Bilirubin 0.2 mg/dl Direct Bilirubin < 0.1 mg/dl Aspartate Amino Transf (AST/SGOT) 15 U/L Alanine Aminotransferase (ALT/SGPT) 25 U/L Alkaline Phosphatase 156 U/L Total Protein 8.4 gm/dl Albumin 3.0 gm/dl Lipase 111 U/L Urine Color YELLOW Urine Appearance CLEAR Urine pH 5.0 Urine Specific [place] 1.036 Urine Protein NEG Urine Glucose (UA) NEG Urine Ketones NEG Urine Occult Blood 1+ Urine Nitrite POS Urine Bilirubin NEG Urine Urobilinogen NEG Urine Leukocyte Esterase MODERATE Urine WBC (Auto) >30 /hpf Urine RBC (Auto) 0-4 /hpf Urine Hyaline Casts (Auto) 1-5 /lpf Urine Epithelial Cells (Auto) >30 /lpf Urine Bacteria (Auto) 2+ Urine Test NEG Prothrombin Time 11.7 SECONDS Prothromb Time International Ratio 1.1 Assessment & Plan 46 y/o female with a history of multiple sclerosis, asthma, allergic bronchopulmonary aspergillosis, s/p vaginal delivery 01/26/16 who presents s/p perianal abscess I&D with Dr. Cantrell on 03/19 with hypotension, hypoxia, and possible sepsis. Pt has been tachycardic throughout stay. BP began to drop last night and has not returned to normal despite IV fluids. Afebrile last night but this has resolved. Hypoxic when taken off oxygen with saturations in low to mid 80s on room air, returned to 90s on 2L. Sepsis--pt meets sepsis criteria with tachycardia (HR 115 during examination) and leukocytosis with WBC over 22,000 + source of infection (perianal abscess, UTI) -Transfer to telemetry for closer monitoring -Check ESR, CRP, magnesium and lactic acid now -Blood cultures pending -Abscess culture preliminary result positive for Gram negative bacilli, sensitivities to follow -Chest x-ray pending -Abnormal rhythm, will check EKG -Add vancomycin IV to Zosyn and Flagyl -Increase IVF to 150 cc/hr -Duonebs QIDR and q2h prn SOB/wheezing Urinary tract infection--UA positive for blood, nitrites, leuks, bacteria -Urine culture preliminary result positive for Gram negative bacilli, sensitivities to follow -Continue abx as above S/p I&D of left perianal abscess--CT showed large, loculated abscess w/ overlying cellulitis measuring 7 x 6 x 4.5 cm -IV abx as above -Drains and dressings as per primary team Multiple sclerosis -Pt has been holding Copaxone due to , will continue to hold Asthma -Pt has rescue Ventolin inhaler at home, will hold given Duoneb treatments as above Code Status -Level I, FULL RESUSCITATION STATUS Thank you for this consultation. We will continue to follow.
--- NOTE | 2016-03-20 10:57 | DIAGNOSTIC IMAGING REPORT ---
CHEST ONE VIEW PORTABLE CLINICAL HISTORY: wheezing COMPARISON STUDY: 07/01/2008, CT scan dated 05/30/2008 FINDINGS: The cardiac and mediastinal contours are normal. There is no evidence of focal pulmonary consolidation. There is no evidence of failure. No pleural effusions are visualized.[ There are few faint right upper lung zone densities, likely postinflammatory. There is no evidence of free intraperitoneal air. IMPRESSION: 1. Fibronodular right upper lung zone opacities, likely postinflammatory 2. No evidence of failure. No evidence of lobar consolidation Electronically signed by: Otto Morgan M.D. 03/20/2016 10:55 AM Dictated Date/Time: 03/20/2016 10:53 AM
[2016-03-20] MEDS: ALBUT/IPRATROP 3MG/0.5MG NEB 3 ML VIAL INH SCH ×3 (11:39→19:56)
[2016-03-21] VITALS (8 sets, daily range): BP systolic 96–123; BP diastolic 58–78; PULSE 78–87; TEMP 36.5–37; O2SAT 93–99
[2016-03-21] MEDS: LACTATED RINGER'S 1000ML 1,000 ML IV SCH ×2 (00:17→13:31)
[2016-03-21] MEDS: KETOROLAC TROMETHAMINE 30 MG/ML VIAL IV. SCH ×4 (00:17→18:39)
[2016-03-21] MEDS: PIPERACILL/TAZOBAC IV 3.375 GM in DEXTROSE 5% 100ML 100 ML IV SCH ×2 (00:17→08:47)
[2016-03-21] MEDS ORDERED: VANCOMYCIN TROUGH ONE (01:30)
[2016-03-21] MEDS: VANCOMYCIN INJ 1,000 MG in SODIUM CHLORIDE 0.9% 250ML 250 ML IV SCH (02:18)
[2016-03-21] MEDS: METRONIDAZOLE / NSS 500 MG in PREMIXED NSS 100 ML IV SCH ×3 (04:40→21:55)
[2016-03-21 07:02] LABS: BASO % 0.3 %; BASO ABS # 0.05 K/uL (0-0.2); COMPLETE YES; EOS % 2.1 %; HEMATOCRIT 29.6 % (37-47); IG% 1.2 %; LYMPH % 28.9 %; MEAN CELL VOLUME 88.4 fL (80-100); MEAN CORPUSCULAR HEMOGLOBIN 29.3 pg (25-34); MEAN CORPUSCULAR HGB CONC 33.1 g/dl (32-36); MEAN PLATELET VOLUME 9.4 fL (7.4-10.4); MONO % 8.3 %; NEUT % 59.2 %; PLATELET COUNT 371 K/uL (130-400); RED BLOOD COUNT 3.35 M/uL (4.2-5.4); WHITE BLOOD COUNT 14.89 K/uL (4.8-10.8)
[2016-03-21] MEDS: ALBUT/IPRATROP 3MG/0.5MG NEB 3 ML VIAL INH SCH ×2 (07:13→11:19)
[2016-03-21 07:27] LABS: BUN/CREATININE RATIO 10.2 (10-20); CALCIUM 8.4 mg/dl (8.5-10.1); CREATININE 0.61 mg/dl (0.60-1.20); POTASSIUM 3.6 mmol/L (3.5-5.1)
[2016-03-21] MEDS: DOCUSATE SODIUM/SENNA 50/8.6MG TAB PO SCH ×2 (08:47→21:56)
[2016-03-21] MEDS: HEPARIN SOD 5000 UNIT/0.5 ML CARP SQ SCH ×2 (08:52→21:57)
--- NOTE | 2016-03-21 09:52 | Pharmacy Progress Note ---
Pharmacy Antibiotic Prog Note Date of Service: Mar 21, 2016. Subjective: The patient is currently receiving Vancomycin 1300 mg IV every 8 hours, Zosyn 3.375gm IV q8h (EI), and Flagyl 500mg IV q8h. The patient is currently on day # 3 of abx IV therapy. Objective: Height (Feet): 5 Height (Inches): 6.00 Weight (Kilograms): 72.700 Levels: Item Value Date Time Vancomycin Level Trough 8.6 mcg/ml 03/21/16 0200 Lab Results (24hrs): Laboratory Tests Test 03/21/16 06:10 BUN/Creatinine Ratio 10.2 Blood Urea Nitrogen 6 mg/dl Creatinine 0.61 mg/dl White Blood Count 14.89 K/uL Red Blood Count 3.35 M/uL Hemoglobin 9.8 g/dL Hematocrit 29.6 % Mean Corpuscular Volume 88.4 fL Mean Corpuscular Hemoglobin 29.3 pg Mean Corpuscular Hemoglobin Concent 33.1 g/dl Platelet Count 371 K/uL Mean Platelet Volume 9.4 fL Neutrophils (%) (Auto) 59.2 % Lymphocytes (%) (Auto) 28.9 % Monocytes (%) (Auto) 8.3 % Eosinophils (%) (Auto) 2.1 % Basophils (%) (Auto) 0.3 % Neutrophils # (Auto) 8.81 K/uL Lymphocytes # (Auto) 4.30 K/uL Monocytes # (Auto) 1.23 K/uL Eosinophils # (Auto) 0.32 K/uL Basophils # (Auto) 0.05 K/uL Micro Results: Item Value Date Time Blood Culture Received 03/20/16 0955 Blood Pending Blood Culture Received 03/20/16 0950 Blood Pending Gram Stain - Final Resulted 03/19/16 1831 Abscess Perirectal Urine Culture - Final Complete 03/19/16 1205 Urine , Clean Catch Escherichia Coli PATIENT: DEANDRE HARMON LOC: [place] U # : [id number] AGE/SX: 46/F ROOM: [facility] REG : 03/19/[address]: Aden Cantrell M.D. : 1970 BED: 1 DIS : STATUS: ADM IN TLOC: SPEC #: [id number] DELIA: 03/19/16 STATUS: RES REQ #: [id number] RECD: 03/19/[address]: Aden Cantrell M.D. SOURCE: ABSCESS ENTR: 03/19/[address]: Shiela Spangler, DO [facility]: PERIRECTAL ORDERED: AER/RAVIN CULTSMR Procedure Result Verified Site GRAM STAIN Final 03/20/16 RESULT MANY WBCs SEEN MANY GRAM POSITIVE COCCI FEW GRAM NEGATIVE BACILLI RARE GRAM POSITIVE BACILLI OR AER/RAVIN CULT Preliminary 03/21/16 Organism 1 ESCHERICHIA COLI QUANITY MANY SENS SENSITIVITY TO FOLLOW Organism 2 GRAM POSITIVE COCCI QUANITY MODERATE SENS SENSITIVITIES DEPENDENT ON FURTHER IDENTIFICATION 1. ESCHERICHIA COLI Target Route Dose RX AB Cost M.I.C. IQ ------ ----- ------ -- ------ -------- - ------ TRIMET/SULFA S <=2/38 AMPICILLIN R >16 AMPICILLIN/SUL I 16/8 CEFAZOLIN S <=8 CEFOTAXIME S <=2 CEFTRIAXONE S <=1 CEFEPIME S <=4 CEFUROXIME S <=4 IMIPENEM S <=1 GENTAMICIN S <=4 TOBRAMYCIN S <=4 AMIKACIN S <=16 CIPROFLOXACIN S <=1 LEVOFLOXACIN S <=2 ERTAPENEM S <=1 PIP/TAZO S <=16 S = SENSITIVE I = INTERMEDIATE R = RESISTANT PATIENT: DEANDRE HARMON LOC: [place] U # : [id number] AGE/SX: 46/F ROOM: S2 REG : 03/19/[address]: Aden Cantrell M.D. : 1970 BED: 1 DIS : STATUS: ADM IN TLOC: SPEC #: [id number] DELIA: 03/19/16120 STATUS: COMP REQ #: [id number] RECD: 03/19/16-[address]: Francisco Javier Alexandre DO SOURCE: [place], CC ENTR: 03/19/16-[address]: Shiela Spangler DO SPDC: ORDERED: CULTURE URCLEAN Procedure Result Verified Site URINE CULTURE Final 03/21/16-827 Organism 1 ESCHERICHIA COLI COLONY COUNT >100,000 CFU/ml SENS SENSITIVITY TO FOLLOW +MIX PLUS LOW COUNTS OTHER MIXED MOISES 1. ESCHERICHIA COLI Target Route Dose RX AB Cost M.I.C. IQ ------ ----- ------ -- ------ -------- - ------ TRIMET/SULFA S <=2/38 AMPICILLIN R >16 AMPICILLIN/SUL I 16/8 CEFAZOLIN S <=8 CEFOTAXIME S <=2 CEFTRIAXONE S <=1 CEFEPIME S <=4 CEFUROXIME S <=4 IMIPENEM S <=1 GENTAMICIN S <=4 TOBRAMYCIN S <=4 AMIKACIN S <=16 CIPROFLOXACIN S <=1 LEVOFLOXACIN S <=2 ERTAPENEM S <=1 NITROFURANTOIN S <=32 PIP/TAZO S <=16 S = SENSITIVE I = INTERMEDIATE R = RESISTANT Assessment & Plan: Vancomycin: * Trough level this morning was subtherapeutic at 8.6 mcg/ml. * Increase Vancomycin dose to 18mg/kg and shorten interval to y0tedun. * Start Vancomycin 1300mg IV [id number]. * Obtain trough on 03/22 prior to the 1000am dose. Goal trough 15-20 mcg/ml. Zosyn: * Continue Zosyn 3.375gm IV q8h (EI) * Urine and perirectal abscess C/S resulted this morning. Based upon C/S of E.Coli may be able to deescalate abx if provider willing. * Still waiting on C/S of Gram + cocci from perirectal abscess. Flagyl: * Continue per provider management. Pharmacy will continue to follow and will adjust dose/frequency as necessary. Thank you
--- NOTE | 2016-03-21 10:30 | Surgery Progress Note ---
Surgery Progress Note Date of Service Mar 21, 2016. Subjective much improved- awake, alert Objective Vital Signs: Date Time Temp Pulse Resp B/P Pulse Ox O2 Delivery O2 Flow Rate FiO2 03/21/16 08:00 Room Air 03/21/16 07:44 36.9 84 20 123/78 99 Room Air 03/21/16 07:15 78 16 97 Room Air 03/21/16 04:06 36.9 84 18 96/58 97 2.0 03/21/16 04:00 Room Air 03/21/16 00:01 Room Air 03/20/16 23:44 36.9 97 18 110/70 94 Room Air 03/20/16 20:00 Room Air 03/20/16 19:56 88 18 97 Room Air 03/20/16 19:25 36.6 97 20 112/73 98 Room Air 03/20/16 16:02 98 Room Air 03/20/16 15:53 79 18 98 Nasal Cannula 2.0 03/20/16 15:43 36.8 84 20 109/69 96 Nasal Cannula 2.0 03/20/16 12:00 37.1 91 18 98/64 97 Room Air 2.0 03/20/16 12:00 37.1 91 18 98/64 97 Room Air 2.0 03/20/16 11:39 85 18 97 Room Air 03/20/16 11:11 36.8 91 20 96/62 95 Nasal Cannula 2.0 General Appearance: no apparent distress Respiratory/Chest: no respiratory distress Cardiovascular: regular rate, rhythm Incision(s): drainage (expected) Laboratory Results: Results Past 24 Hours Test 03/21/16 02:00 03/21/16 06:10 Range/Units Vancomycin Level Trough 8.6 SEE COMMENT mcg/ml White Blood Count 14.89 4.8-10.8 K/uL Red Blood Count 3.35 4.2-5.4 M/uL Hemoglobin 9.8 12.0-16.0 g/dL Hematocrit 29.6 37-47 % Mean Corpuscular Volume 88.4 80-100 fL Mean Corpuscular Hemoglobin 29.3 25-34 pg Mean Corpuscular Hemoglobin Concent 33.1 32-36 g/dl Platelet Count 371 130-400 K/uL Mean Platelet Volume 9.4 7.4-10.4 fL Neutrophils (%) (Auto) 59.2 % Lymphocytes (%) (Auto) 28.9 % Monocytes (%) (Auto) 8.3 % Eosinophils (%) (Auto) 2.1 % Basophils (%) (Auto) 0.3 % Neutrophils # (Auto) 8.81 1.4-6.5 K/uL Lymphocytes # (Auto) 4.30 1.2-3.4 K/uL Monocytes # (Auto) 1.23 0.11-0.59 K/uL Eosinophils # (Auto) 0.32 0-0.5 K/uL Basophils # (Auto) 0.05 0-0.2 K/uL RDW Standard Deviation 44.4 36.4-46.3 fL RDW Coefficient of Variation 13.7 11.5-14.5 % Immature Granulocyte % (Auto) 1.2 % Immature Granulocyte # (Auto) 0.18 0.00-0.02 K/uL Sodium Level 145 136-145 mmol/L Potassium Level 3.6 3.5-5.1 mmol/L Chloride Level 109 98-107 mmol/L Carbon Dioxide Level 27 21-32 mmol/L Anion Gap 9.0 3-11 mmol/L Blood Urea Nitrogen 6 7-18 mg/dl Creatinine 0.61 0.60-1.20 mg/dl Est Creatinine Clear Calc Drug Dose 120.1 ml/min Estimated GFR () 127.8 Estimated GFR (Non- 110.3 BUN/Creatinine Ratio 10.2 10-20 Random Glucose 99 70-99 mg/dl Calcium Level 8.4 8.5-10.1 mg/dl Assessment & Plan 03/21/16- respiratory status much improved- min pain- cont tele for now possible d/c home tomorrow- ask ID for atbx coverage 03/20/16- s/p I/D Lg perirectal, deep abscess- mild septic parameters- clinically she looks ok- no distress- add IV fluid , cont IV atbx, calix for now 03/20/16- s/p I/D Lg perirectal, deep abscess- mild septic parameters- clinically she looks ok- no distress- add IV fluid , cont IV atbx, calix for now
[2016-03-21] MEDS: VANCOMYCIN INJ 1,300 MG in SODIUM CHLORIDE 0.9% 250ML 250 ML IV SCH ×2 (10:51→18:33)
--- NOTE | 2016-03-21 12:15 | Medical Consult ---
Consultation Date of Consultation: Mar 21, 2016. Attending Physician: Aden Cantrell M.D. Reason for Consultation: Abx coverage History of Present Illness Patient is a 46 yo female who presented to the ED from [facility] with concerns of perirectal abscess. The patient had been experiencing shaking chills prior to admission along with rectal pain. She has had no chills or fever since admission. She is feeling well now. She is s/p I & D of large recatl abscess. The operative report was reviewed. I also spoke to Dr. Cantrell regarding this patient. She had a urine cultures on admission growing E. Coli which showed resistance to Ampicillin and intermediate resistance to Unasyn. Otherwise was pansensitive. Surgical culture growing E. Coli, gamma strep, and Group B strep. The patient's previous records were also reviewed today and it was noted that she previously had history of Group B Strep as well which did not have sensitivities completed. Blood cultures are pending. The patient is currently on IV Zosyn, Vancomycin, and Flagyl. Pelvic CT scan showed large, multiloculated left-sided perianal abscess with overlying cellulitis, no fistula , and prominent left pelvic sidewall, perirectal, and iliac lymph nodes. Chest X -Ray showed no evidence of consolidation, but did show fibronodular right upper lung zone opacities, likely postinflammatory. WBC count on admission was 25.98, but has decreased to 14.89 today. Past Medical/Surgical History Medical Problems: (1) Sepsis Status: Acute Medical Problems: (1) Perirectal abscess (2) PROM (premature rupture of membranes) Family History Diabetes mellitus Hypothyroidism Non-Hodgkin's lymphoma Tuberculosis Noncontributory Social History Smoking Status: Never Smoker Smokeless Tobacco Use: No Alcohol Use: occasionally Drug Use: none Marital Status: Housing Status: lives with family ( and son) Occupation Status: employed Allergies Coded Allergies: Clindamycin (Verified Allergy, Unknown, ., 01/25/16) Molds & Smuts (Verified Allergy, Unknown, MOLD/POLLEN--SNEEZING/WATERY EYES, 01/25/16) POLLEN (Verified Allergy, Unknown, MOLD/POLLEN--SNEEZING/WATERY EYES, ) Home Medications Current Inpatient Medications Medications (Trade) Dose Ordered Sig/Ranjeet Route Start Time Stop Time Status Last Admin Dose Admin Albuterol 2 puffs 2 puffs Q4 PRN INH 03/19/16 13:15 04/18/16 13:14 Lactated Ringer's (Lr 1000ml) 1,000 ml @ 100 mls/hr Q10H IV 03/19/16 14:14 04/18/16 14:13 03/21/16 00:17 150 MLS/HR Miscellaneous (Iv Fluids Completed) 1 ea PRN PRN N/A 03/19/16 15:15 03/19/17 15:14 Piperacillin Sod/ Tazobactam Sod 1 ea 1 ea UD PRN N/A 03/19/16 16:30 04/18/16 16:29 Piperacillin Sod/ Tazobactam Sod/ Dextrose (Zosyn Iv/D5 100ml) 115 ml @ 28.75 mls/ hr Q8H IV 03/19/16 17:00 03/29/16 16:59 03/21/16 08:47 28.75 MLS/HR Vancomycin HCl (Consult) 1 ea UD PRN N/A 03/19/16 16:45 04/18/16 16:44 Hydromorphone HCl (Dilaudid Inj) 1 mg Q3H PRN IV 03/19/16 19:00 04/02/16 18:59 Acetaminophen/ Hydrocodone Bitart ([place] 5/325 Tab) 1 tab Q4 PRN PO 03/19/16 19:00 04/02/16 18:59 Acetaminophen/ Hydrocodone Bitart 2 tab 2 tab Q4 PRN PO 03/19/16 19:00 04/02/16 18:59 Promethazine HCl/ Sodium Chloride (Phenergan Inj/ Nss 50ml) 51 ml @ 204 mls/hr Q6H PRN IV 03/19/16 19:00 04/18/16 18:59 Senna/Docusate Sodium (Senokot S Tab) 1 tab BID PO 03/19/16 21:00 04/18/16 20:59 03/21/16 08:47 1 TAB Ketorolac Tromethamine (Toradol Inj) 30 mg Q6H IV. 03/20/16 01:00 03/24/16 18:59 03/21/16 06:41 30 MG Ondansetron HCl 4 mg 4 mg Q6H PRN IV 03/19/16 19:00 04/18/16 18:59 Metronidazole/Prmx (Flagyl / Nss/ Premixed Nss) 100 ml @ 100 mls/hr Q8H IV 03/19/16 20:00 03/29/16 19:59 03/21/16 04:40 100 MLS/HR Acetaminophen 650 mg 650 mg Q4H PRN PO 03/19/16 19:30 04/18/16 19:29 Promethazine HCl/ Sodium Chloride (Phenergan Inj/ Nss 50ml) 50.5 ml @ 204 mls/hr Q6H PRN IV 03/19/16 19:45 04/18/16 19:44 Heparin Sodium (Porcine) (Heparin Sq 5000 Unit/0.5ml) 5,000 unit Q12H SQ 03/20/16 09:00 04/19/16 08:59 03/21/16 08:52 5,000 UNIT Albuterol/ Ipratropium (Duoneb) 3 ml QIDR INH 03/20/16 12:00 04/19/16 11:59 03/21/16 07:13 3 ML Albuterol/ Ipratropium 3 ml 3 ml Q2H PRN INH 03/20/16 10:00 04/19/16 09:59 Vancomycin HCl/ Sodium Chloride (Vancomycin Inj/ Nss 250ml) 276 ml @ 125 mls/hr Q8H IV 03/21/16 10:00 03/29/16 23:59 03/21/16 10:51 125 MLS/HR Current Inpatient Medications Current Inpatient Medications Medications (Trade) Dose Ordered Sig/Ranjeet Route Start Time Stop Time Status Last Admin Dose Admin Albuterol 2 puffs 2 puffs Q4 PRN INH 03/19/16 13:15 04/18/16 13:14 Lactated Ringer's (Lr 1000ml) 1,000 ml @ 100 mls/hr Q10H IV 03/19/16 14:14 04/18/16 14:13 03/21/16 00:17 150 MLS/HR Miscellaneous (Iv Fluids Completed) 1 ea PRN PRN N/A 03/19/16 15:15 03/19/17 15:14 Piperacillin Sod/ Tazobactam Sod 1 ea 1 ea UD PRN N/A 03/19/16 16:30 04/18/16 16:29 Piperacillin Sod/ Tazobactam Sod/ Dextrose (Zosyn Iv/D5 100ml) 115 ml @ 28.75 mls/ hr Q8H IV 03/19/16 17:00 03/29/16 16:59 03/21/16 08:47 28.75 MLS/HR Vancomycin HCl (Consult) 1 ea UD PRN N/A 03/19/16 16:45 04/18/16 16:44 Hydromorphone HCl (Dilaudid Inj) 1 mg Q3H PRN IV 03/19/16 19:00 04/02/16 18:59 Acetaminophen/ Hydrocodone Bitart ([place] 5/325 Tab) 1 tab Q4 PRN PO 03/19/16 19:00 04/02/16 18:59 Acetaminophen/ Hydrocodone Bitart 2 tab 2 tab Q4 PRN PO 03/19/16 19:00 04/02/16 18:59 Promethazine HCl/ Sodium Chloride (Phenergan Inj/ Nss 50ml) 51 ml @ 204 mls/hr Q6H PRN IV 03/19/16 19:00 04/18/16 18:59 Senna/Docusate Sodium (Senokot S Tab) 1 tab BID PO 03/19/16 21:00 04/18/16 20:59 03/21/16 08:47 1 TAB Ketorolac Tromethamine (Toradol Inj) 30 mg Q6H IV. 03/20/16 01:00 03/24/16 18:59 03/21/16 06:41 30 MG Ondansetron HCl 4 mg 4 mg Q6H PRN IV 03/19/16 19:00 04/18/16 18:59 Metronidazole/Prmx (Flagyl / Nss/ Premixed Nss) 100 ml @ 100 mls/hr Q8H IV 03/19/16 20:00 03/29/16 19:59 03/21/16 04:40 100 MLS/HR Acetaminophen 650 mg 650 mg Q4H PRN PO 03/19/16 19:30 04/18/16 19:29 Promethazine HCl/ Sodium Chloride (Phenergan Inj/ Nss 50ml) 50.5 ml @ 204 mls/hr Q6H PRN IV 03/19/16 19:45 04/18/16 19:44 Heparin Sodium (Porcine) (Heparin Sq 5000 Unit/0.5ml) 5,000 unit Q12H SQ 03/20/16 09:00 04/19/16 08:59 03/21/16 08:52 5,000 UNIT Albuterol/ Ipratropium (Duoneb) 3 ml QIDR INH 03/20/16 12:00 04/19/16 11:59 03/21/16 07:13 3 ML Albuterol/ Ipratropium 3 ml 3 ml Q2H PRN INH 03/20/16 10:00 04/19/16 09:59 Vancomycin HCl/ Sodium Chloride (Vancomycin Inj/ Nss 250ml) 276 ml @ 125 mls/hr Q8H IV 03/21/16 10:00 03/29/16 23:59 03/21/16 10:51 125 MLS/HR Review of Systems Constitutional: + chills (IRRIGATION INSTALLATION SPECIALIST), + fatigue Eyes: No worsening of vision ENT: No hearing loss Respiratory: No cough, No shortness of breath Cardiovascular: No chest pain Abdomen: + problem reported (rectal abscess), No nausea, No pain, No vomiting Musculoskeletal: No joint pain Genitourinary - Female: + dysuria, + urinary frequency (chronically on and off - chronic/recurrent UTIs) Integumentary: No itch, No rash Physical Exam Date Time Temp Pulse Resp B/P Pulse Ox O2 Delivery O2 Flow Rate FiO2 03/21/16 08:00 Room Air 03/21/16 07:44 36.9 84 20 123/78 99 Room Air 03/21/16 07:15 78 16 97 Room Air 03/21/16 04:06 36.9 84 18 96/58 97 2.0 03/21/16 04:00 Room Air 03/21/16 00:01 Room Air 03/20/16 23:44 36.9 97 18 110/70 94 Room Air 03/20/16 20:00 Room Air 03/20/16 19:56 88 18 97 Room Air 03/20/16 19:25 36.6 97 20 112/73 98 Room Air 03/20/16 16:02 98 Room Air 03/20/16 15:53 79 18 98 Nasal Cannula 2.0 03/20/16 15:43 36.8 84 20 109/69 96 Nasal Cannula 2.0 General Appearance: WD/WN, no apparent distress Head: normocephalic, atraumatic Eyes: normal inspection, sclerae normal ENT: hearing grossly normal Neck: supple, trachea midline Respiratory/Chest: no respiratory distress, no accessory muscle use Cardiovascular: regular rate, rhythm Extremities/Musculoskelatal: normal range of motion Neurologic/Psych: alert, normal mood/affect Skin: normal color, warm/dry, no rash Laboratory Results CHEST ONE VIEW PORTABLE CLINICAL HISTORY: wheezing COMPARISON STUDY: 07/01/2008, CT scan dated 05/30/2008 FINDINGS: The cardiac and mediastinal contours are normal. There is no evidence of focal pulmonary consolidation. There is no evidence of failure. No pleural effusions are visualized.[ There are few faint right upper lung zone densities, likely postinflammatory. There is no evidence of free intraperitoneal air. IMPRESSION: 1. Fibronodular right upper lung zone opacities, likely postinflammatory 2. No evidence of failure. No evidence of lobar consolidation CT SCAN OF THE PELVIS WITH IV CONTRAST CLINICAL HISTORY: Perianal pain. Abscess. COMPARISON STUDY: No priors. TECHNIQUE: Following the IV administration of 119 cc of Optiray 320, CT scan of the pelvis is performed from the pelvic inlet to the proximal femora. Images are reviewed in the axial, sagittal, and coronal planes. IV contrast was administered without complication. CT DOSE: 279.84 mGy.cm FINDINGS: The bladder, uterus, and adnexa are normal as visualized. There are small ovarian follicles. No free fluid is seen in the pelvis. There is significant induration an inflammatory stranding identified surrounding the perianal soft tissues. There is a large and thick-walled/peripherally enhancing multiloculated left-sided perianal fluid collection. This is located below the levator sling and extends from the 11:00 to the 5:00 position, and extends into the medial aspect of the left upper thigh. This complex multiloculated collection measures approximately 7 x 6 x 4.5 cm in aggregate dimension. There is surrounding inflammatory change in the perineal fat with overlying dermal thickening consistent with cellulitis. No fistulous tract is identified. The rectum and the visualized colon are normal in appearance. There is moderate colonic fecal retention. The iliac vessels appear patent. The bony pelvis is intact. No lytic or blastic lesions are seen. A prominent left pelvic sidewall lymph node image #125 measures 10 mm short axis. Prominent iliac chain nodes measure up to 7 mm short axis. A left external iliac node on image #163 measures 1.4 cm in short axis. Prominent perirectal nodes measure up to 9 mm. There is no inguinal lymphadenopathy. IMPRESSION: 1. Findings are consistent with a large and multiloculated left-sided perianal abscess with overlying cellulitis as detailed above. This measures approximately 7 x 6 x 4.5 cm. 2. No fistulous tract is identified. 3. Prominent left pelvic sidewall, perirectal, and iliac chain lymph nodes are likely on a reactive basis. RUN DATE: 03/21/16 [facility] PAGE 1 RUN TIME: 1150 Specimen Inquiry PATIENT: DEANDRE HARMON LOC: [facility]T U # : [id number] AGE/SX: 46/F ROOM: S2 REG : 03/19/[address]: Aden Cantrell M.D. : 1970 BED: 1 DIS : STATUS: ADM IN TLOC: SPEC #: [id number] DELIA: 03/19/16 STATUS: RES REQ #: [id number] RECD: 03/19/[address]: Aden Cantrell M.D. SOURCE: ABSCESS ENTR: 03/19/[address]: Shiela Spangler, DO SPDESC: PERIRECTAL ORDERED: AER/RAVIN CULTSMR Procedure Result Verified Site GRAM STAIN Final 03/20/16 RESULT MANY WBCs SEEN MANY GRAM POSITIVE COCCI FEW GRAM NEGATIVE BACILLI RARE GRAM POSITIVE BACILLI OR AER/RAVIN CULT Preliminary 03/21/16-1150 Organism 1 ESCHERICHIA COLI QUANITY MANY SENS SENSITIVITY TO FOLLOW +MIXWOUND PLUS LOW COUNTS OF PROBABLE INTESTINAL MOISES Organism 2 GAMMA STREP NOT ENTEROCOCCUS QUANITY MODERATE SENS NO SENSITIVITY TO FOLLOW Organism 3 GROUP B BETA STREP QUANITY FEW SENS SENSITIVITY TO FOLLOW 1. ESCHERICHIA COLI Target Route Dose RX AB Cost M.I.C. IQ ------ ----- ------ -- ------ -------- - ------ TRIMET/SULFA S <=2/38 AMPICILLIN R >16 AMPICILLIN/SUL I 16/8 CEFAZOLIN S <=8 CEFOTAXIME S <=2 CEFTRIAXONE S <=1 CEFEPIME S <=4 CEFUROXIME S <=4 IMIPENEM S <=1 GENTAMICIN S <=4 TOBRAMYCIN S <=4 AMIKACIN S <=16 CIPROFLOXACIN S <=1 LEVOFLOXACIN S <=2 ERTAPENEM S <=1 PIP/TAZO S <=16 S = SENSITIVE I = INTERMEDIATE R = RESISTANT Item Value Date Time Blood Culture Received 03/20/16 0955 Blood Pending Blood Culture Received 03/20/16 0950 Blood Pending Gram Stain - Final Resulted 03/19/16 1831 Abscess Perirectal Urine Culture - Final Complete 03/19/16 1205 Urine , Clean Catch Escherichia Coli Last 24 Hours Test 03/21/16 02:00 03/21/16 06:10 Vancomycin Level Trough 8.6 mcg/ml White Blood Count 14.89 K/uL Red Blood Count 3.35 M/uL Hemoglobin 9.8 g/dL Hematocrit 29.6 % Mean Corpuscular Volume 88.4 fL Mean Corpuscular Hemoglobin 29.3 pg Mean Corpuscular Hemoglobin Concent 33.1 g/dl Platelet Count 371 K/uL Mean Platelet Volume 9.4 fL Neutrophils (%) (Auto) 59.2 % Lymphocytes (%) (Auto) 28.9 % Monocytes (%) (Auto) 8.3 % Eosinophils (%) (Auto) 2.1 % Basophils (%) (Auto) 0.3 % Neutrophils # (Auto) 8.81 K/uL Lymphocytes # (Auto) 4.30 K/uL Monocytes # (Auto) 1.23 K/uL Eosinophils # (Auto) 0.32 K/uL Basophils # (Auto) 0.05 K/uL RDW Standard Deviation 44.4 fL RDW Coefficient of Variation 13.7 % Immature Granulocyte % (Auto) 1.2 % Immature Granulocyte # (Auto) 0.18 K/uL Sodium Level 145 mmol/L Potassium Level 3.6 mmol/L Chloride Level 109 mmol/L Carbon Dioxide Level 27 mmol/L Anion Gap 9.0 mmol/L Blood Urea Nitrogen 6 mg/dl Creatinine 0.61 mg/dl Est Creatinine Clear Calc Drug Dose 120.1 ml/min Estimated GFR () 127.8 Estimated GFR (Non- 110.3 BUN/Creatinine Ratio 10.2 Random Glucose 99 mg/dl Calcium Level 8.4 mg/dl Assessment & Plan Patient with large perirectal abscess and surrounding cellulitis now s/p I & D along with E. Coli UTI. Her surgical culture is growing E. Coli, Group B Strep, and gamma strep not enterococcus. She is currently on IV Zosyn, Vancomycin, and Flagyl. Will change therapy to Levaquin and Flagyl. This will cover Group B Strep, gamma strep, E. Coli in urine/abscess and potential for other anaerobic bacteria. Will continue Vancomycin pending sensitivities of Group B Strep, but likely can continue PO Levaquin and Flagyl as outpatient as well. We will continue to follow. Plan: 1. Continue Vancomycin pending cultures 2. Change Zosyn to Levaquin. Likely can transition to PO Levaquin and Flagyl upon D/C PROVIDER ADDENDUM: Patient examined and reviewed with Ms. Ashby. Agree with above assessment.
[2016-03-21] MEDS ORDERED: LEVOFLOXACIN 750 MG TAB PO SCH (13:00)
--- NOTE | 2016-03-21 14:52 | Hospitalist Progress Note ---
Hospitalist Progress Note Date of Service Mar 21, 2016. (Liudmila Roach ., POONAM) Subjective Pt evaluation today including: conversation w/ patient, physical exam, chart review, lab review, review of studies, review of inpatient medication list Voiding: calix catheter in place Patient reports feeling well. She breathing well on room air and denies any new complaints. She complains of her usual chronic cough and tingling in her hands. She still reports feeling weak and fatigued. She does state that she did not tolerate the nebulizer treatments well. The patient denies fevers, chills, sweats, chest pain, palpitations, claudication, wheezing, shortness of breath, nausea, vomiting, abdominal pain, dysuria, hematuria, urinary retention , and paralysis. Additional Comments: See HPI for pertinent positives and negatives. All other systems reviewed and negative. (Liudmila Roach ., POONAM) Objective Vital Signs Date Time Temp Pulse Resp B/P Pulse Ox O2 Delivery O2 Flow Rate FiO2 03/21/16 12:18 36.8 81 18 117/69 97 Room Air 03/21/16 12:00 Room Air 03/21/16 08:00 Room Air 03/21/16 07:44 36.9 84 20 123/78 99 Room Air 03/21/16 07:15 78 16 97 Room Air 03/21/16 04:06 36.9 84 18 96/58 97 2.0 03/21/16 04:00 Room Air 03/21/16 00:01 Room Air 03/20/16 23:44 36.9 97 18 110/70 94 Room Air 03/20/16 20:00 Room Air 03/20/16 19:56 88 18 97 Room Air 03/20/16 19:25 36.6 97 20 112/73 98 Room Air 03/20/16 16:02 98 Room Air 03/20/16 15:53 79 18 98 Nasal Cannula 2.0 03/20/16 15:43 36.8 84 20 109/69 96 Nasal Cannula 2.0 (Liudmila Roach ., SAHIL-C) Physical Exam General Appearance: WD/WN, no apparent distress Eyes: normal inspection, PERRL, EOMI ENT: normal ENT inspection, hearing grossly normal, pharynx normal Neck: supple, no JVD, trachea midline Respiratory/Chest: lungs clear, normal breath sounds, no respiratory distress Cardiovascular: regular rate, rhythm, no gallop, no murmur Abdomen: normal bowel sounds, non tender, soft Extremities: non-tender, normal inspection, no pedal edema Neurologic/Psychiatric: alert, normal mood/affect, oriented x 3 Skin: normal color, warm/dry, no rash (Liudmila Roach .POONAM) Laboratory Results Last 24 Hours Test 03/21/16 02:00 03/21/16 06:10 Vancomycin Level Trough 8.6 mcg/ml White Blood Count 14.89 K/uL Red Blood Count 3.35 M/uL Hemoglobin 9.8 g/dL Hematocrit 29.6 % Mean Corpuscular Volume 88.4 fL Mean Corpuscular Hemoglobin 29.3 pg Mean Corpuscular Hemoglobin Concent 33.1 g/dl Platelet Count 371 K/uL Mean Platelet Volume 9.4 fL Neutrophils (%) (Auto) 59.2 % Lymphocytes (%) (Auto) 28.9 % Monocytes (%) (Auto) 8.3 % Eosinophils (%) (Auto) 2.1 % Basophils (%) (Auto) 0.3 % Neutrophils # (Auto) 8.81 K/uL Lymphocytes # (Auto) 4.30 K/uL Monocytes # (Auto) 1.23 K/uL Eosinophils # (Auto) 0.32 K/uL Basophils # (Auto) 0.05 K/uL RDW Standard Deviation 44.4 fL RDW Coefficient of Variation 13.7 % Immature Granulocyte % (Auto) 1.2 % Immature Granulocyte # (Auto) 0.18 K/uL Sodium Level 145 mmol/L Potassium Level 3.6 mmol/L Chloride Level 109 mmol/L Carbon Dioxide Level 27 mmol/L Anion Gap 9.0 mmol/L Blood Urea Nitrogen 6 mg/dl Creatinine 0.61 mg/dl Est Creatinine Clear Calc Drug Dose 120.1 ml/min Estimated GFR () 127.8 Estimated GFR (Non- 110.3 BUN/Creatinine Ratio 10.2 Random Glucose 99 mg/dl Calcium Level 8.4 mg/dl (Liudmila Roach .POONAM) Diagnostic Results Reviewed the following studies and agree with interpretation as follows: Patient Name: DEANDRE HARMON Unit Number: [id number] Dictated: 03/20/16 105 Transcribed: 03/20/16 1053 ARG Printed Date/Time: [~ rep prt dt]/[~ rep prt tm] [~ rep ct labl] - [~ rep ct ivnm] [facility] Radiology Department [place], [place] [id number] Dictated: 03/20/16 105 Transcribed: 03/20/16 105 ARG Printed Date/Time: [~ rep prt dt]/[~ rep prt tm] [~ rep ct labl] - [~ rep ct ivnm] Patient: DEANDRE HARMON Address1: [address] [place] [address] Rec: [id number] Address2: Acct ID: [id number] [facility] Zip: [place] [address] Date: 1970 Sex: F Room/Bed: W3532 Ref Phy: Shiela Spangler DO SC: W Att Phy: Aden Cantrell M.D. Report #: [id number] Cat Phy: Shiela Spangler DO Test: CXR1P Admit Phy: Aden Cantrell M.D. Radio Sportscaster: DANAE Interpreting Phy: Otto Morgan M.D. Diagnosis: PERIRECTAL ABCESS Ordering Phy: Aden Cantrell M.D. Service Date: 03/20/16 Admit Date: 03/19/1700/21/17 MNE: [id number] CONF: DICTATED BY: Otto Morgan M.D.]] CC: Aden Cantrell M.D., Cara M., DO Endcc: [~ rep ct add3]] CHEST ONE VIEW PORTABLE CLINICAL HISTORY: wheezing COMPARISON STUDY: 07/01/2008, CT scan dated 05/30/2008 FINDINGS: The cardiac and mediastinal contours are normal. There is no evidence of focal pulmonary consolidation. There is no evidence of failure. No pleural effusions are visualized.[ There are few faint right upper lung zone densities, likely postinflammatory. There is no evidence of free intraperitoneal air. IMPRESSION: 1. Fibronodular right upper lung zone opacities, likely postinflammatory 2. No evidence of failure. No evidence of lobar consolidation Electronically signed by: Otto Morgan M.D. 03/20/2016 10:55 AM Dictated Date/Time: 03/20/2016 10:53 AM The status of this report is Signed. Draft = Not yet reviewed or approved by Radiologist. Signed = Reviewed and approved by Radiologist. <AttendingPhy>Aden Cantrell M.D.</AttendingPhy> <FamilyPhy>Shiela Spangler, DO< /FamilyPhy> <PrimaryPhy>Shiela Spangler, DO</PrimaryPhy> <UnitNumber>[id number] </UnitNumber> <VisitNumber>[id number]</VisitNumber> <PatientName>DEANDRE HARMON</PatientName> <DateOfBirth>1970</DateOfBirth> <Location>W</ Location> <ServiceDate>03/19/16</ServiceDate> <MNE>ESINDI</MNE> <OrderingPhy> Aden Cantrell M.D.</OrderingPhy> <OrderingPhyMNE>f rep ord dr flores</ OrderingPhyMNE> <DictatingPhyMNE>f rep dict dr flores</DictatingPhyMNE> <CCListMNE> f rep ct mne</CCListMNE> <AdmittingPhyMNE>f pt admit dr flores</AdmittingPhyMNE> < AttendingPhyMNE>f pt attend dr flores</AttendingPhyMNE> <ConsultingPhyMNE>f pt consult dr flores</ConsultingPhyMNE> <FamilyPhyMNE>f pt fam dr flores</FamilyPhyMNE> <OtherPhyMNE>f pt other dr flores</OtherPhyMNE> < PrimaryPhyMNE>f pt prim care dr flores</PrimaryPhyMNE> <ReferringPhyMNE>f pt referring dr flores</ReferringPhyMNE> (Liudmila Roach, POONAM) Assessment and Plan 46 y/o female with a history of multiple sclerosis, asthma, allergic bronchopulmonary aspergillosis, s/p vaginal delivery 01/26/16 who presents s/p perianal abscess I&D with Dr. Cantrell on 03/19 with hypotension, hypoxia, and possible sepsis. Medicine consulted 03/20 for sepsis. Pt has been tachycardic throughout stay. BP began to drop evening of 03/19 and has not returned to normal despite IV fluids. Afebrile 03/19 but this has resolved. Hypoxic when taken off oxygen with saturations in low to mid 80s on room air, returned to 90s on 2L. Sepsis--pt meets sepsis criteria with tachycardia (HR 115 during examination) and leukocytosis with WBC over 22,000 + source of infection (perianal abscess, UTI) -Transfer to telemetry for closer monitoring 03/20. Pt has drastically improved and is now stable, can transfer back to med/surg 03/21 -Check ESR, CRP, magnesium and lactic acid -Magnesium and lactic acid WNL -ESR elevated at 57, CRP elevated at 24 -CXR: right upper lobe opacities likely postinflammatory -Blood cultures pending -Abscess culture preliminary result positive for E. coli resistant to ampicillin /Unasyn, Gamma strep not enterococcus, and Group B beta strep. Sensitivities to follow -ID consulted by primary team: D/C Zosyn, start Levaquin. Continue vancomycin and Flagyl for now pending sensitivities. Pt could be discharged on oral Levaquin and Flagyl -Consider D/Cing IVF as BP is stable -Duonebs QIDR d/c'd as pt not tolerating Urinary tract infection--UA positive for blood, nitrites, leuks, bacteria -Urine culture preliminary result positive for E. coli resistant to ampicillin -Continue abx as above S/p I&D of left perianal abscess--CT showed large, loculated abscess w/ overlying cellulitis measuring 7 x 6 x 4.5 cm -IV abx as above -Drains and dressings as per primary team Multiple sclerosis -Pt has been holding Copaxone due to , will continue to hold Asthma -Ventolin 2 puffs q4h prn SOB/wheezing Code Status -Level I, FULL RESUSCITATION STATUS Thank you for this consultation. We will continue to follow. (Liudmila Roach ., PA-C) Reviewed: Pt Seen/Exam by Me (Nolvia Hernandez, DO) History Pt is feeling much improved. She is not having pain related to her I&D site. Eating without issue. Pt denies fever, SOB, chest pain, abd pain, n/v/c/d, LE pain or swelling. ROS as noted above, otherwise neg. (Nolvia Hernandez, DO) General Appearance: WD/WN, no apparent distress Respiratory: normal breath sounds, no respiratory distress Cardiovascular: normal peripheral pulses, regular rate, rhythm Gastrointestinal: non tender, soft Extremities: non-tender, no pedal edema Neurologic/Psychiatric: alert, oriented x 3 Skin Characteristics: normal color, warm/dry (Nolvia Hernandez, ) Assessment/Plan Agree with plan as outlined above Abx as per ID Pt is currently Cx noted (Nolvia Hernandez, DO)
[2016-03-22] MEDS: KETOROLAC TROMETHAMINE 30 MG/ML VIAL IV. SCH ×4 (00:26→19:23)
[2016-03-22] MEDS: LACTATED RINGER'S 1000ML 1,000 ML IV SCH (00:26)
[2016-03-22] MEDS: VANCOMYCIN INJ 1,300 MG in SODIUM CHLORIDE 0.9% 250ML 250 ML IV SCH ×2 (02:36→09:45)
[2016-03-22] MEDS: METRONIDAZOLE / NSS 500 MG in PREMIXED NSS 100 ML IV SCH (04:05)
[2016-03-22 06:56] LABS: BASO % 0.6 %; BASO ABS # 0.08 K/uL (0-0.2); COMPLETE YES; EOS % 5.4 %; HEMATOCRIT 33.7 % (37-47); IG% 3.9 %; LYMPH % 32.8 %; MEAN CELL VOLUME 88.2 fL (80-100); MEAN CORPUSCULAR HEMOGLOBIN 29.1 pg (25-34); MEAN CORPUSCULAR HGB CONC 32.9 g/dl (32-36); MEAN PLATELET VOLUME 9.4 fL (7.4-10.4); MONO % 9.5 %; NEUT % 47.8 %; PLATELET COUNT 460 K/uL (130-400); RED BLOOD COUNT 3.82 M/uL (4.2-5.4)
[2016-03-22 07:35] LABS: BLOOD UREA NITROGEN 8 mg/dl (7-18); CREATININE 0.65 mg/dl (0.60-1.20); GLUCOSE 101 mg/dl (70-99)
[2016-03-22 07:36] LABS: BUN/CREATININE RATIO 11.7 (10-20); CARBON DIOXIDE 24 mmol/L (21-32); CHLORIDE 111 mmol/L (98-107); SODIUM 146 mmol/L (136-145)
[2016-03-22 07:55] VITALS: BP 122/82; PULSE 72; TEMP 36.8; O2SAT 93
[2016-03-22 08:00] VITALS: O2SAT 93
--- NOTE | 2016-03-22 08:21 | Surgery Progress Note ---
Surgery Progress Note Date of Service Mar 22, 2016. Subjective + feeling well much improved, excellent uo Objective Vital Signs: Date Time Temp Pulse Resp B/P Pulse Ox O2 Delivery O2 Flow Rate FiO2 03/22/16 08:00 93 Room Air 03/22/16 07:55 36.8 72 20 122/82 93 Room Air 03/21/16 23:55 Room Air 03/21/16 23:02 36.8 87 17 118/77 93 Room Air 03/21/16 17:00 Room Air 03/21/16 16:48 36.5 87 17 115/77 93 Room Air 03/21/16 15:30 Room Air 03/21/16 15:24 37.0 80 16 112/67 94 Room Air 03/21/16 15:13 36.8 81 18 97 2.0 03/21/16 12:18 36.8 81 18 117/69 97 Room Air 03/21/16 12:00 Room Air General Appearance: no apparent distress Respiratory/Chest: no respiratory distress Incision(s): drainage (expected ) Laboratory Results: Results Past 24 Hours Test 03/22/16 06:17 03/22/16 07:51 Range/Units White Blood Count 13.10 4.8-10.8 K/uL Red Blood Count 3.82 4.2-5.4 M/uL Hemoglobin 11.1 12.0-16.0 g/dL Hematocrit 33.7 37-47 % Mean Corpuscular Volume 88.2 80-100 fL Mean Corpuscular Hemoglobin 29.1 25-34 pg Mean Corpuscular Hemoglobin Concent 32.9 32-36 g/dl Platelet Count 460 130-400 K/uL Mean Platelet Volume 9.4 7.4-10.4 fL Neutrophils (%) (Auto) 47.8 % Lymphocytes (%) (Auto) 32.8 % Monocytes (%) (Auto) 9.5 % Eosinophils (%) (Auto) 5.4 % Basophils (%) (Auto) 0.6 % Neutrophils # (Auto) 6.26 1.4-6.5 K/uL Lymphocytes # (Auto) 4.30 1.2-3.4 K/uL Monocytes # (Auto) 1.24 0.11-0.59 K/uL Eosinophils # (Auto) 0.71 0-0.5 K/uL Basophils # (Auto) 0.08 0-0.2 K/uL RDW Standard Deviation 44.9 36.4-46.3 fL RDW Coefficient of Variation 14.0 11.5-14.5 % Immature Granulocyte % (Auto) 3.9 % Immature Granulocyte # (Auto) 0.51 0.00-0.02 K/uL Sodium Level 146 136-145 mmol/L Potassium Level 3.5-5.1 mmol/L Chloride Level 111 98-107 mmol/L Carbon Dioxide Level 24 21-32 mmol/L Anion Gap 11.0 3-11 mmol/L Blood Urea Nitrogen 8 7-18 mg/dl Creatinine 0.65 0.60-1.20 mg/dl Est Creatinine Clear Calc Drug Dose 112.7 ml/min Estimated GFR () 125.1 Estimated GFR (Non- 108.0 BUN/Creatinine Ratio 11.7 10-20 Random Glucose 101 70-99 mg/dl Calcium Level 9.0 8.5-10.1 mg/dl Assessment & Plan 03/22/16- doing well, awaiting sensitivity on cult- possible d/c home later today on po meds- see in office next Mon/Mon- for drain 03/21/16- respiratory status much improved- min pain- cont tele for now possible d/c home tomorrow- ask ID for atbx coverage 03/20/16- s/p I/D Lg perirectal, deep abscess- mild septic parameters- clinically she looks ok- no distress- add IV fluid , cont IV atbx, calix for now 03/21/16- respiratory status much improved- min pain- cont tele for now possible d/c home tomorrow- ask ID for atbx coverage 03/20/16- s/p I/D Lg perirectal, deep abscess- mild septic parameters- clinically she looks ok- no distress- add IV fluid , cont IV atbx, calix for now
[2016-03-22] MEDS ORDERED: VANCOMYCIN TROUGH ONE (09:30)
[2016-03-22] MEDS: DOCUSATE SODIUM/SENNA 50/8.6MG TAB PO SCH (09:42)
[2016-03-22] MEDS: HEPARIN SOD 5000 UNIT/0.5 ML CARP SQ SCH (09:45)
--- NOTE | 2016-03-22 10:56 | Infectious Disease Progress Nt ---
Progress Note Date of Service Mar 22, 2016. Subjective Pt evaluation today including: conversation w/ patient, physical exam, chart review, lab review, review of studies, conversation w/ heritage consultant (Dr. Hernandez) , review of inpatient medication list Surgical culture is growing E. Coli, Gamma strep, pansensitive Group B Strep, and probable anaerobic gram negative bacteria. WBC count this morning was 13.10. Creatinine stable at 0.65. She is currently on IV Vancomycin, Levaquin, and Flagyl. She is feeling well. She states that her pain is tolerable. She has been having some loose stools but no watery diarrhea. Reviewed Dr. Cantrell's note- he feels that she likely is OK for D/C home today. She states that she is having no breathing problems or stomach pain. All Other Systems: Reviewed and Negative Medications Current Inpatient Medications Medications (Trade) Dose Ordered Sig/Ranjeet Route Start Time Stop Time Status Last Admin Dose Admin Albuterol (Ventolin Hfa Inhaler) 2 puffs Q4 PRN INH 03/19/16 13:15 04/18/16 13:14 Miscellaneous (Iv Fluids Completed) 1 ea PRN PRN N/A 03/19/16 15:15 03/19/17 15:14 Vancomycin HCl (Consult) 1 ea UD PRN N/A 03/19/16 16:45 04/18/16 16:44 Hydromorphone HCl (Dilaudid Inj) 1 mg Q3H PRN IV 03/19/16 19:00 04/02/16 18:59 Acetaminophen/ Hydrocodone Bitart ([place] 5/325 Tab) 1 tab Q4 PRN PO 03/19/16 19:00 04/02/16 18:59 Acetaminophen/ Hydrocodone Bitart 2 tab 2 tab Q4 PRN PO 03/19/16 19:00 04/02/16 18:59 Promethazine HCl/ Sodium Chloride (Phenergan Inj/ Nss 50ml) 51 ml @ 204 mls/hr Q6H PRN IV 03/19/16 19:00 04/18/16 18:59 Senna/Docusate Sodium (Senokot S Tab) 1 tab BID PO 03/19/16 21:00 04/18/16 20:59 03/22/16 09:42 1 TAB Ketorolac Tromethamine (Toradol Inj) 30 mg Q6H IV. 03/20/16 01:00 03/24/16 18:59 03/22/16 06:20 30 MG Ondansetron HCl 4 mg 4 mg Q6H PRN IV 03/19/16 19:00 04/18/16 18:59 Metronidazole/Prmx (Flagyl / Nss/ Premixed Nss) 100 ml @ 100 mls/hr Q8H IV 03/19/16 20:00 03/29/16 19:59 03/22/16 04:05 100 MLS/HR Acetaminophen 650 mg 650 mg Q4H PRN PO 03/19/16 19:30 04/18/16 19:29 Promethazine HCl/ Sodium Chloride (Phenergan Inj/ Nss 50ml) 50.5 ml @ 204 mls/hr Q6H PRN IV 03/19/16 19:45 04/18/16 19:44 Heparin Sodium (Porcine) 5000 unit 5,000 unit Q12H SQ 03/20/16 09:00 04/19/16 08:59 03/22/16 09:45 5,000 UNIT Vancomycin HCl/ Sodium Chloride (Vancomycin Inj/ Nss 250ml) 276 ml @ 125 mls/hr Q8H IV 03/21/16 10:00 03/29/16 23:59 03/22/16 09:45 125 MLS/HR Levofloxacin (Levaquin Tab) 750 mg DAILY@11 PO 03/21/16 13:00 03/31/16 12:59 03/21/16 13:23 750 MG Objective Vital Signs Date Time Temp Pulse Resp B/P Pulse Ox O2 Delivery O2 Flow Rate FiO2 03/22/16 08:00 93 Room Air 03/22/16 08:00 Room Air 03/22/16 07:55 36.8 72 20 122/82 93 Room Air 03/21/16 23:55 Room Air 03/21/16 23:02 36.8 87 17 118/77 93 Room Air 03/21/16 17:00 Room Air 03/21/16 16:48 36.5 87 17 115/77 93 Room Air 03/21/16 15:30 Room Air 03/21/16 15:24 37.0 80 16 112/67 94 Room Air 03/21/16 15:13 36.8 81 18 97 2.0 1/23/17 12:18 36.8 81 18 117/69 97 Room Air 03/21/16 12:00 Room Air Physical Exam General Appearance: WD/WN, no apparent distress Eyes: normal inspection, sclerae normal ENT: hearing grossly normal Neck: supple, trachea midline Respiratory/Chest: chest non-tender, normal breath sounds, no respiratory distress, no accessory muscle use, + wheezing (throughout bilateral lungs- mild) Cardiovascular: regular rate, rhythm, no murmur, + pertinent finding (skipped beats) Abdomen: normal bowel sounds Extremities: normal range of motion Neurologic/Psychiatric: alert, normal mood/affect Skin: normal color, warm/dry, no rash Laboratory Results RUN DATE: 03/22/16 [facility] PAGE 1 RUN TIME: 909 Specimen Inquiry PATIENT: DEANDRE HARMON LOC: [facility] U # : [id number] AGE/SX: 46/F ROOM: [facility] REG : 03/19/[address]: Aden Cantrell M.D. : 1970 BED: 1 DIS : STATUS: ADM IN TLOC: SPEC #: [id number] DELIA: 03/19/16 STATUS: RES DAVID #: [id number] RECD: 03/19/[address]: Aden Cantrell M.D. SOURCE: ABSCESS ENTR: 03/19/[address]: Shiela Spangler, DO SPDES: PERIRECTAL ORDERED: AER/RAVIN CULTSMR Procedure Result Verified Site GRAM STAIN Final 03/20/16 RESULT MANY WBCs SEEN MANY GRAM POSITIVE COCCI FEW GRAM NEGATIVE BACILLI RARE GRAM POSITIVE BACILLI OR AER/RAVIN CULT Preliminary 03/22/16 Organism 1 ESCHERICHIA COLI QUANITY MANY SENS SENSITIVITY TO FOLLOW +MIXWOUND PLUS LOW COUNTS OF PROBABLE INTESTINAL MOISES Organism 2 GAMMA STREP NOT ENTEROCOCCUS QUANITY MODERATE SENS NO SENSITIVITY TO FOLLOW Organism 3 GROUP B BETA STREP QUANITY FEW SENS SENSITIVITY TO FOLLOW Organism 4 PROBABLE RAVIN GRAM NEG BACILLI QUANITY MANY SENS SENSITIVITIES DEPENDENT ON FURTHER IDENTIFICATION CONTINUED ON NEXT PAGE RUN DATE: 03/22/16 [facility] PAGE 2 RUN TIME: 909 Specimen Inquiry SPEC: [id number] PATIENT: DEANDRE HARMON [id number] ( Continued) Procedure Result Verified Site OR AER/RAVIN CULT Preliminary (continued) 03/22/16-909 E COLI GBBS M.I.C. RX M.I.C. RX --------- ------ --------- ------ TRIMET/SULFA <=2/38 S AMPICILLIN >16 R 0.12 S AMPICILLIN/SUL 16/8 I CEFAZOLIN <=8 S CEFOTAXIME <=2 S <=0.25 S CEFTRIAXONE <=1 S <=0.25 S CEFEPIME <=4 S <=0.25 S CEFUROXIME <=4 S CHLORAMPHENICOL 4 S IMIPENEM <=1 S VANCOMYCIN 0.5 S PENICILLIN 0.06 S GENTAMICIN <=4 S TOBRAMYCIN <=4 S ERYTHROMYCIN <=0.06 S AMIKACIN <=16 S CIPROFLOXACIN <=1 S LEVOFLOXACIN <=2 S CLINDAMYCIN <=0.06 S ERTAPENEM <=1 S PIP/TAZO <=16 S AZITHROMYCIN <=0.25 S 1. ESCHERICHIA COLI Target Route Dose RX AB Cost M.I.C. IQ ------ ----- ------ -- ------ -------- - ------ TRIMET/SULFA S <=2/38 AMPICILLIN R >16 AMPICILLIN/SUL I 16/8 CEFAZOLIN S <=8 CEFOTAXIME S <=2 CEFTRIAXONE S <=1 CEFEPIME S <=4 CEFUROXIME S <=4 IMIPENEM S <=1 GENTAMICIN S <=4 TOBRAMYCIN S <=4 AMIKACIN S <=16 CIPROFLOXACIN S <=1 LEVOFLOXACIN S <=2 ERTAPENEM S <=1 PIP/TAZO S <=16 CONTINUED ON NEXT PAGE RUN DATE: 03/22/16 [facility] PAGE 3 RUN TIME: 909 Specimen Inquiry SPEC: [id number] PATIENT: DEANDRE HARMON [id number] ( Continued) Procedure Result Verified Site OR AER/RAVIN CULT Preliminary (continued) 03/22/16 3. GROUP B BETA STREP Target Route Dose RX AB Cost M.I.C. IQ ------ ----- ------ -- ------ -------- - ------ AMPICILLIN S 0.12 CEFOTAXIME S <=0.25 CEFTRIAXONE S <=0.25 CEFEPIME S <=0.25 CHLORAMPHENICOL S 4 VANCOMYCIN S 0.5 PENICILLIN S 0.06 ERYTHROMYCIN S <=0.06 CLINDAMYCIN S <=0.06 AZITHROMYCIN S <=0.25 S = SENSITIVE I = INTERMEDIATE R = RESISTANT Item Value Date Time Gram Stain - Final Resulted 03/19/16 1831 Abscess Perirectal Blood Culture Received 03/20/16 0950 Blood Pending Blood Culture Received 03/20/16 0955 Blood Pending Urine Culture - Final Complete 03/19/16 1205 Urine , Clean Catch Escherichia Coli Blood Culture - Preliminary Resulted 03/20/16 0955 Blood NO GROWTH TO DATE. Blood Culture - Preliminary Resulted 03/20/16 0950 Blood NO GROWTH TO DATE. Gram Stain - Final Resulted 03/19/16 1831 Abscess Perirectal Last 24 Hours Test 03/22/16 06:17 03/22/16 07:51 03/22/16 09:28 White Blood Count 13.10 K/uL Red Blood Count 3.82 M/uL Hemoglobin 11.1 g/dL Hematocrit 33.7 % Mean Corpuscular Volume 88.2 fL Mean Corpuscular Hemoglobin 29.1 pg Mean Corpuscular Hemoglobin Concent 32.9 g/dl Platelet Count 460 K/uL Mean Platelet Volume 9.4 fL Neutrophils (%) (Auto) 47.8 % Lymphocytes (%) (Auto) 32.8 % Monocytes (%) (Auto) 9.5 % Eosinophils (%) (Auto) 5.4 % Basophils (%) (Auto) 0.6 % Neutrophils # (Auto) 6.26 K/uL Lymphocytes # (Auto) 4.30 K/uL Monocytes # (Auto) 1.24 K/uL Eosinophils # (Auto) 0.71 K/uL Basophils # (Auto) 0.08 K/uL RDW Standard Deviation 44.9 fL RDW Coefficient of Variation 14.0 % Immature Granulocyte % (Auto) 3.9 % Immature Granulocyte # (Auto) 0.51 K/uL Sodium Level 146 mmol/L Potassium Level mmol/L 3.9 mmol/L Chloride Level 111 mmol/L Carbon Dioxide Level 24 mmol/L Anion Gap 11.0 mmol/L Blood Urea Nitrogen 8 mg/dl Creatinine 0.65 mg/dl Est Creatinine Clear Calc Drug Dose 112.7 ml/min Estimated GFR () 125.1 Estimated GFR (Non- 108.0 BUN/Creatinine Ratio 11.7 Random Glucose 101 mg/dl Calcium Level 9.0 mg/dl Vancomycin Level Trough 21.6 mcg/ml Assessment and Plan Patient with large perirectal abscess and surrounding cellulitis now s/p I & D along with E. Coli UTI. Her surgical culture is growing E. Coli, Group B Strep, gamma strep not enterococcus, and probable anaerobic bacteria. She is currently on IV Levaquin, Vancomycin, and Flagyl. Will transition to PO Augmentin and Omnicef. Recommend continuation for 2 weeks and final length of abx therapy will be determined by improvement. She will need ID follow up as an outpatient as well. OK for D/C from our perspective as well. Thanks Plan: 1. Change to PO Omnicef 300 mg BID and PO Augmentin 875 BID to cover UTI and abscess since patient is breast feeding at home these will be safer options. PROVIDER ADDENDUM: Patient reviewed with Ms. Ashby. Agree with above assessment.
--- NOTE | 2016-03-22 13:10 | Progress Note ---
Subjective Date of Service: Mar 22, 2016. Subjective Pt evaluation today including: conversation w/ patient, conversation w/ sales support consultant Pt continues to feel improved. No pain related to I&D. Pt denies fever, SOB, chest pain, abd pain, n/v/c/d, LE pain or swelling. Eating without issue. ROS as noted above, otherwise neg. Problem List Medical Problems: (1) Sepsis Status: Acute Objective Vital Signs Date Time Temp Pulse Resp B/P Pulse Ox O2 Delivery O2 Flow Rate FiO2 03/22/16 08:00 93 Room Air 03/22/16 08:00 Room Air 03/22/16 07:55 36.8 72 20 122/82 93 Room Air 03/21/16 23:55 Room Air 03/21/16 23:02 36.8 87 17 118/77 93 Room Air 03/21/16 17:00 Room Air 03/21/16 16:48 36.5 87 17 115/77 93 Room Air 03/21/16 15:30 Room Air 03/21/16 15:24 37.0 80 16 112/67 94 Room Air 03/21/16 15:13 36.8 81 18 97 2.0 Laboratory Results Last 24 Hours Test 03/22/16 06:17 03/22/16 07:51 03/22/16 09:28 White Blood Count 13.10 K/uL Red Blood Count 3.82 M/uL Hemoglobin 11.1 g/dL Hematocrit 33.7 % Mean Corpuscular Volume 88.2 fL Mean Corpuscular Hemoglobin 29.1 pg Mean Corpuscular Hemoglobin Concent 32.9 g/dl Platelet Count 460 K/uL Mean Platelet Volume 9.4 fL Neutrophils (%) (Auto) 47.8 % Lymphocytes (%) (Auto) 32.8 % Monocytes (%) (Auto) 9.5 % Eosinophils (%) (Auto) 5.4 % Basophils (%) (Auto) 0.6 % Neutrophils # (Auto) 6.26 K/uL Lymphocytes # (Auto) 4.30 K/uL Monocytes # (Auto) 1.24 K/uL Eosinophils # (Auto) 0.71 K/uL Basophils # (Auto) 0.08 K/uL RDW Standard Deviation 44.9 fL RDW Coefficient of Variation 14.0 % Immature Granulocyte % (Auto) 3.9 % Immature Granulocyte # (Auto) 0.51 K/uL Sodium Level 146 mmol/L Potassium Level mmol/L 3.9 mmol/L Chloride Level 111 mmol/L Carbon Dioxide Level 24 mmol/L Anion Gap 11.0 mmol/L Blood Urea Nitrogen 8 mg/dl Creatinine 0.65 mg/dl Est Creatinine Clear Calc Drug Dose 112.7 ml/min Estimated GFR () 125.1 Estimated GFR (Non- 108.0 BUN/Creatinine Ratio 11.7 Random Glucose 101 mg/dl Calcium Level 9.0 mg/dl Vancomycin Level Trough 21.6 mcg/ml Assessment and Plan 46 y/o female with a history of multiple sclerosis, asthma, allergic bronchopulmonary aspergillosis, s/p vaginal delivery 01/26/16 who presents s/p perianal abscess I&D with Dr. Cantrell on 03/19 with hypotension, hypoxia, and possible sepsis. Medicine consulted 03/20 for sepsis. Pt has been tachycardic throughout stay. BP began to drop evening of 03/19 and has not returned to normal despite IV fluids. Afebrile 03/19 but this has resolved. Hypoxic when taken off oxygen with saturations in low to mid 80s on room air, returned to 90s on 2L. Sepsis--pt meets sepsis criteria with tachycardia (HR 115 during examination) and leukocytosis with WBC over 22,000 + source of infection (perianal abscess, UTI) -Transfer to telemetry for closer monitoring 03/20. Pt has drastically improved and is now stable -Check ESR, CRP, magnesium and lactic acid -Magnesium and lactic acid WNL -ESR elevated at 57, CRP elevated at 24 -CXR: right upper lobe opacities likely postinflammatory -Blood cultures neg on prelim -Abscess culture preliminary result positive for E. coli resistant to ampicillin /Unasyn, Gamma strep not enterococcus, and Group B beta strep. Sensitivities to follow -ID consulted by primary team: plan for d/c on augmentin and omnicef PT is currently I did discuss with pharmacy and vanco is excreted in breast milk but not considered harmful to infants. Generally not much is excreted 24 hrs after last dose and completely clear at 48hrs. I did inform pt of this. My concern at this point is destroying gut ciara in an . I did advise pt to have seen by peds and discuss possible probiotic use while pt is on abx. Urinary tract infection--UA positive for blood, nitrites, leuks, bacteria -Urine culture preliminary result positive for E. coli resistant to ampicillin -Continue abx as above S/p I&D of left perianal abscess--CT showed large, loculated abscess w/ overlying cellulitis measuring 7 x 6 x 4.5 cm -IV abx as above -Drains and dressings as per primary team culture preliminary result positive for E. coli resistant to ampicillin Multiple sclerosis -Pt has been holding Copaxone due to , will continue to hold Asthma -Ventolin 2 puffs q4h prn SOB/wheezing Code Status -Level I, FULL RESUSCITATION STATUS
[2016-03-22 15:04] VITALS: BP 122/83; PULSE 77; TEMP 36.6; O2SAT 94
[2016-03-22] MEDS ORDERED: AMOXICILLIN/CLAVULANATE TAB 875 MG TAB PO SCH (17:45)
--- NOTE | 2016-03-22 18:41 | Discharge Instructions ---
Discharge Instructions Admission Reason for Admission: Perirectal Abcess Discharge Discharge Diagnosis / Problem: perianal abscess Discharge Goals Goal(s): Decrease discomfort, Improve function, Improve disease control Activity Recommendations Activity Limitations: as noted below Lifting Limitations: no more than 25 pounds Exercise/Sports Limitations: until after follow-up appointment May Resume Sexual Activity: when tolerated Shower/Bathe: tomorrow (may shower and use sitz bath) Driving or Machine Use: resume 1 day after discharge SPECIAL CARE INSTRUCTIONS: * Expect drainage and you will need to wear a pad and change as needed * May use ibuprofen for pain as tolerated. * Expect some swelling and bruising. Call your doctor if: * Temperature above 101 degrees * Pain not relieved by pain medicine ordered * There is increased drainage or redness from any incision * You have any unanswered questions or concerns [phone]. FOLLOW UP VISIT: If not already scheduled, please call the office for a follow-up visit. for next Mon or Mon for drain removal OFFICE PHONE NUMBER: Dr. Cantrell Office . Current Hospital Diet Patient's current hospital diet: Regular Diet Discharge Diet Recommended Diet: Regular Diet Procedures Procedures Performed: Perirectal abscess drainage Pending Studies Studies pending at discharge: no Medical Emergencies . Who to Call and When: Medical Emergencies: If at any time you feel your situation is an emergency, please call 911 immediately. . Non-Emergent Contact Non-Emergency issues call your: Surgeon . "Provider Documentation" section prepared by Aden Cantrell. VTE Core Measure Inpt VTE Proph given/why not?: SCD's
[2016-03-22 18:54] VITALS: BP 122/83; PULSE 77; TEMP 36.6; O2SAT 94
[2016-03-22] MEDS ORDERED: CEFDINIR 250 MG/5 ML 60 ML PO SCH (21:00)
--- NOTE | 2016-03-23 14:45 | EDITING REQUIRED CODING QUERY ---
CODING QUERY To promote full compliance with coding requirements relating to patient care, provider participation is requested in all cases of project engineer uncertainty. Please assist us with the question(s) below: Coding Question(s): Dr. Cantrell, Throughout the record, the terms "perianal" and "perirectal" abscess are used interchangeably, but there are separate ICD-10-CM codes for each. Please clarify if the patient was treated for a: ( ) perianal abscess (x ) perirectal abscess Physician's Response(s): Thank you for your time, JULIO Miles, FORM SETTER SUPERVISOR
--- NOTE | 2016-03-30 09:05 | DISCHARGE SUMMARY ---
PRIMARY DISCHARGE DIAGNOSIS: 1. Complex perirectal abscess. 2. Sepsis. 3. Urinary tract infection. SECONDARY DISCHARGE DIAGNOSES: 1. Asthma. 2. Multiple sclerosis. PROCEDURE PERFORMED: Incision and drainage of complex perirectal abscess. [facility]. Infectious disease for antibiotic selection. HOSPITAL COURSE: The patient is a 46-year-old female who presented to the Emergency Department with 1 week of left perineal pain progressing to chills and was referred to the ED by wound care center for perirectal abscess. She was taken to the operating room that evening for incision and drainage. The procedure was well tolerated. She was transferred to the surgical floor. A Esra drain was left in the cavity. Overnight she was febrile and tachycardic, had mild desaturations. Her white count remained at 22,000. She was seen by the hospitalist service, was transferred to telemetry for sepsis parameters. IV Zosyn and vancomycin and Flagyl were continued. By day 2, she improved significantly. Her white count was 14,000. Cultures were growing E. coli, beta strep and gamma strep. Infectious disease was consulted for antibiotic recommendations. She also had the E. coli growing in her urine. IV Zosyn was changed to Levaquin in anticipation of being discharged home on oral Levaquin. Final cultures showed prepatellar and peptostreptococcus species as well. By day 3, she had been transferred back to regular floor. She was doing well, remained afebrile. She was stable for discharge home on oral antibiotics. DISCHARGE INSTRUCTIONS: Discharge home. Follow up with Dr. Cantrell in 1 week. Continue Sitz baths. The [place] drain was left in place and will be removed in the office next week. DISCHARGE MEDICATIONS: Augmentin 875 mg p.o. b.i.d. and Omnicef 300 mg p.o. b.i.d. MTDD
[2016-08-10] MEDS ORDERED: ANTICRE6 PO (07:36)
[2016-08-25] MEDS ORDERED: MULT1CHW37 PO (15:28)
[2016-08-25] MEDS ORDERED: ALBU18002 INH (15:28)
[2016-08-25] MEDS ORDERED: AUGMENTIN PO (15:28)
== END 2016-03-22 20:00 | disposition home health service (06) | DRG 854 ==
LOC: ENRESERVDT → CANRESERV → ENRESERVTM → C.EDB 09:58 → EDBEDREQ 14:33 → C.MSW 14:33 → C.2T 03-20 11:36 → EDBEDREQ 03-21 15:17 → C.MSN 03-21 16:38
PROVIDERS: ADMIT Surgery; ATTEND Surgery
PROC: 0D9P00Z Drainage of Rectum with Drainage Device, Open Approach (ICD-10-PCS; principal; 2016-03-19 13:19)
DX: A41.9 Sepsis, unspecified organism (principal); K61.1 Rectal abscess; B44.81 Allergic bronchopulmonary aspergillosis; N39.0 Urinary tract infection, site not specified; L03.315 Cellulitis of perineum; R09.02 Hypoxemia; B95.1 Streptococcus, group B, as the cause of diseases classified elsewhere; B95.4 Other streptococcus as the cause of diseases classified elsewhere; B96.20 Unspecified Escherichia coli [E. coli] as the cause of diseases classified elsewhere; Z16.11 Resistance to penicillins; G35 Multiple sclerosis; J45.909 Unspecified asthma, uncomplicated

== ENCOUNTER → 2016-06-09 | Outpatient (CLI) | payer BC ==
[~2016-06-09] MED LIST changes: +ALBU18002 INH; +AMOX875T PO; +ANTICRE6 PO; +AUGMENTIN PO; +CEPH500C2 PO; +DALF10TA PO; +GLAT1INJ INJ; +HYDR-5688 PO; -MULT-506 PO; +MULT1CHW37 PO; +ONDA4TAB10 SL; +PRED10TA PO; +PRED20TA PO; -VNTHFA/IN INH
== END | disposition home or self-care (01) ==
LOC: C.LABSPEC 17:17
PROVIDERS: ATTEND Surgery
DX: L72.3 Sebaceous cyst (principal)

== ENCOUNTER → 2016-08-19 | Day surgery (SDC) | payer BC ==
[2016-08-10 07:37] VITALS: Ht 167.6 cm; Wt 70.5 kg
[~2016-08-19] VITALS: Ht 167.6 cm; Wt 70.5 kg
[~2016-08-19] MED LIST changes: +CEFAZOLIN 2000 MG/60 ML D5W IV SCH; +LACTATED RINGER'S 1000ML 1,000 ML IV SCH
== END | disposition home or self-care (01) ==
LOC: EDSTATUS 08:00 → C.PAT 13:54
PROVIDERS: ATTEND Surgery
DX: L72.3 Sebaceous cyst (principal)

== ENCOUNTER 2016-08-31 05:03 | Observation (INO) | payer BC ==
[2016-08-25 15:36] VITALS: Ht 167.6 cm; Wt 70.0 kg
[~2016-08-31] VITALS: Ht 167.6 cm; Wt 70.0 kg
[2016-08-31] VITALS (8 sets, daily range): BP systolic 96–100; BP diastolic 60–66; PULSE 61–76; TEMP 36.5–36.8; O2SAT 94–96
[~2016-08-31 05:03] MED LIST changes: -AMOX875T PO; -ANTICRE6 PO; -CEFAZOLIN 2000 MG/60 ML D5W IV SCH; -CEPH500C2 PO; -DALF10TA PO; -GLAT1INJ INJ; -HYDR-5688 PO; -LACTATED RINGER'S 1000ML 1,000 ML IV SCH; -ONDA4TAB10 SL; -PRED10TA PO; -PRED20TA PO
[2016-08-31] MEDS ORDERED: LACTATED RINGER'S 1000ML 1,000 ML IV SCH ×2 (06:00→08:22)
[2016-08-31] MEDS ORDERED: CEFOXITIN IV 2,000 MG in DEXTROSE 5% 50ML 50 ML IV SCH (06:00)
[2016-08-31] MEDS ORDERED: FENTANYL CITRATE INJ 50 MCG/1 ML 2 ML VIAL ONE (06:20)
[2016-08-31] MEDS ORDERED: LIDOCAINE HCL 2% 2 ML VIAL (20MG/ML) ONE (06:20)
[2016-08-31] MEDS ORDERED: MIDAZOLAM HCL 1 MG/ML 2ML VIAL ONE (06:20)
[2016-08-31] MEDS ORDERED: ROCURONIUM BROMIDE 10 MG/ML 5 ML VIAL ONE ×2 (06:20→06:21)
[2016-08-31] MEDS ORDERED: ONDANSETRON INJ 2 MG/ML 2 ML VIAL ONE (06:21)
[2016-08-31] MEDS ORDERED: GLYCOPYRROLATE INJ 0.2 MG/ML VIAL ONE (06:21)
[2016-08-31] MEDS ORDERED: DEXAMETHASONE SOD INJ 4 MG/ML VIAL ONE (06:21)
[2016-08-31] MEDS ORDERED: NEOSTIGMINE METHYLSULFATE 5 MG/5 ML SYR ONE (06:21)
[2016-08-31] MEDS ORDERED: PROPOFOL IV EMULSION 10 MG/ML 20 ML VIAL IV ONE (06:21)
[2016-08-31] MEDS ORDERED: ACETAMINOPHEN 1000 MG/100 ML IV IV ONE (06:31)
--- NOTE | 2016-08-31 06:40 | History & Physical Bridge Note ---
H&P Re-Evaluation Bridge Note: I have examined the patient, reviewed the History & Physical and in the interval since the performance of the History & Physical I have noted the following changes of clinical significance: No changes noted
[2016-08-31] MEDS ORDERED: BUPIVACAINE 0.5 % 5 MG/1 ML MPF 30ML VIAL ONE (06:48)
--- NOTE | 2016-08-31 07:54 | [facility] Operative Report ---
Operative Report Operative Date Aug 31, 2016. Pre-Operative Diagnosis Fistula in ano, perirectal abscess, sebacious cyst posterior neck Post-Operative Diagnosis same Procedure(s) Performed excision posterior neck sebaceous cyst and fistulotomy Surgeon Dr. Cantrell Health Manager Surgeon(s) Vonnie Garcia PA-C Estimated Blood Loss 10ml Findings 2 cm gus cyst, Lt ant/ lateral fistula in ano Specimens A. Sebacious cyst posterior neck Anesthesia gen Complication(s) None Disposition Recovery Room / PACU Description of Procedure Patient was brought in the operating room placed the operating table in the prone position after appropriate intubation. She was gently flexed and then her buttocks were taped apart. Her posterior neck/back and perianal area were prepped and draped in usual fashion. Half percent plain Marcaine was used to anesthetize both areas. Initially the sebaceous cyst was excised by making an elliptical incision around the area of approximately 2 cm. The cyst was dissected from surrounding tissue. The deep tissues and reapproximated using 2- 0 chromic catgut sutures and the skin reapproximated using 5-0 Prolene suture. The anal area was then approached on examination the patient had 2 small openings to the left anterior and lateral of the anal area approximately 2-3 cm from the anal verge. On inspection it appeared she did have a small opening just inside the anal area upon probing this area the patient did have a fistula in ano. The entire tract was then opened performing a fistulotomy. She did not have a significant large abscess but a chronic tract with granulation tissue. After appropriate hemostasis a dressing was applied to both areas and the patient taken to recovery room in stable condition. I attest to the content of the Intraoperative Record and any orders documented therein. Any exceptions are noted below.
[2016-08-31] MEDS ORDERED: HYDROCODONE/ACETAMOPHEN 5/325MG TAB PO PRN ×2 (08:00)
[2016-08-31] MEDS ORDERED: MoRPHine SULFATE 4 MG/ML 1 ML CARP\\VIAL IV PRN (08:00)
[2016-08-31] MEDS ORDERED: ONDANSETRON INJ 2 MG/ML 2 ML VIAL IV PRN ×2 (08:00→08:15)
[2016-08-31] MEDS ORDERED: PROMETHAZINE HCL INJ 25 MG in SODIUM CHLORIDE 0.9% 50ML 50 ML IV PRN (08:00)
[2016-08-31] MEDS ORDERED: MoRPHine SULFATE 2 MG/ML CARP IV PRN (08:00)
[2016-08-31] MEDS ORDERED: ALBUTEROL HFA INHALER 8.5 GM INH PRN (08:00)
[2016-08-31] MEDS: FENTANYL CITRATE INJ 50 MCG/1 ML 2 ML VIAL ONE ×2 (08:08→08:12)
[2016-08-31] MEDS ORDERED: KETOROLAC TROMETHAMINE 30 MG/ML VIAL ONE (08:08)
[2016-08-31] MEDS ORDERED: FENTANYL CITRATE INJ 50 MCG/1 ML 2 ML VIAL IV PRN (08:15)
[2016-08-31] MEDS ORDERED: EpHEDrine SULFATE INJ 50 MG/ML AMP IV PRN (08:15)
[2016-08-31] MEDS ORDERED: LABETALOL HCL IV 5 MG/ML 20ML IV PRN (08:15)
[2016-08-31] MEDS ORDERED: HYDROmorphone INJ 1 MG/ML SYR IV PRN (08:15)
[2016-08-31] MEDS ORDERED: MEPERIDINE HCL 25 MG/ML CARP IV PRN (08:15)
[2016-08-31] MEDS ORDERED: ATROPINE SULFATE 0.1 MG/ML 5ML SYR IV PRN (08:15)
--- NOTE | 2016-08-31 08:41 | Anesthesiology Progress Note ---
Anesthesia Post Op Note Date & Time Aug 31, 2016 at 08:40 Vital Signs Pain Intensity: 0 Vital Signs Past 12 Hours Date Time Temp Pulse Resp B/P (MAP) Pulse Ox O2 Delivery O2 Flow Rate FiO2 08/31/16 08:27 60 16 97 08/31/16 08:27 60 16 08/31/16 08:26 99/65 08/31/16 08:22 63 16 08/31/16 08:22 61 16 94 08/31/16 08:21 103/65 08/31/16 08:17 60 16 100 08/31/16 08:17 62 16 08/31/16 08:16 101/67 08/31/16 08:14 65 14 08/31/16 08:14 65 14 100 08/31/16 08:11 103/65 08/31/16 08:09 62 12 08/31/16 08:09 62 12 100 08/31/16 08:06 104/69 08/31/16 08:04 62 16 100 08/31/16 08:04 63 16 08/31/16 08:01 104/70 08/31/16 07:59 65 16 08/31/16 07:59 65 16 100 08/31/16 07:56 108/69 08/31/16 07:54 36.6 86 10 111/71 100 Mask 10 08/31/16 07:54 86 08/31/16 07:54 86 100 08/31/16 05:54 36.5 74 18 97/65 (76) 95 Room Air Notes Mental Status: alert / awake / arousable, participated in evaluation Pt Amnestic to Procedure: Yes Nausea / Vomiting: adequately controlled Pain: adequately controlled Airway Patency, RR, SpO2: stable & adequate BP & HR: stable & adequate Hydration State: stable & adequate Anesthetic Complications: no major complications apparent
[2016-08-31] MEDS ORDERED: IV FLUIDS COMPLETED PRN (10:30)
[2016-08-31] MEDS ORDERED: HYDR-5688 PO (10:35)
[2016-08-31] MEDS ORDERED: CEPH500C2 PO (10:35)
--- NOTE | 2016-08-31 10:37 | Discharge Instructions ---
Discharge Instructions Date of Service Aug 31, 2016. Admission Reason for Admission: Sebaceous Cyst, Posterior Neck, Perirectal Abscess Discharge Discharge Diagnosis / Problem: sebaceous cyst and fistula in ano Discharge Goals Goal(s): Decrease discomfort, Improve function, Improve disease control Activity Recommendations Activity Limitations: as noted below Lifting Limitations: gradually increase as tolerated Exercise/Sports Limitations: until after follow-up appointment May Resume Sexual Activity: when tolerated Shower/Bathe: no limitations Driving or Machine Use: resume 1 day after discharge SPECIAL CARE INSTRUCTIONS: * Cover incisions and change daily for comfort/drainage. * you will need to wear a pad for drainage- also may use sitz bath * May use ibuprofen for pain as tolerated. * Expect some swelling and bruising. Call your doctor if: * Temperature above 101 degrees * Pain not relieved by pain medicine ordered * There is increased drainage or redness from any incision * You have any unanswered questions or concerns [phone]. FOLLOW UP VISIT: If not already scheduled, please call the office for a follow-up visit. for next week- nurse check up OFFICE PHONE NUMBER: Dr. Cantrell Office . Current Hospital Diet Patient's current hospital diet: Regular Diet Discharge Diet Recommended Diet: Regular Diet Procedures Procedures Performed: Excision of Posterior Neck Sebaceous Cyst, Perianal Exam Under Anesthesia,Fistulotomy Pending Studies Studies pending at discharge: no Medical Emergencies . Who to Call and When: Medical Emergencies: If at any time you feel your situation is an emergency, please call 911 immediately. . Non-Emergent Contact Non-Emergency issues call your: Primary Care Provider, Surgeon . "Provider Documentation" section prepared by Aden Cantrell. . VTE Core Measure Inpt VTE Proph given/why not?: SCD's
[2016-08-31] MEDS: DOCUSATE SODIUM/SENNA 50/8.6MG TAB PO SCH ×2 (11:33→22:28)
[2016-08-31] MEDS: MAGNESIUM HYDROXIDE SUSP 30 ML UDC PO SCH ×2 (11:33→22:28)
[2016-08-31] MEDS: CEFOXITIN IV 1,000 MG in DEXTROSE 5% 50ML 50 ML IV SCH ×2 (12:26→18:02)
[2016-08-31] MEDS: KETOROLAC TROMETHAMINE 30 MG/ML VIAL IV. SCH ×2 (16:00→22:28)
[2016-09-01] MEDS: CEFOXITIN IV 1,000 MG in DEXTROSE 5% 50ML 50 ML IV SCH ×2 (00:36→05:37)
[2016-09-01 03:55] VITALS: BP 91/52; PULSE 75; TEMP 36.8; O2SAT 96
[2016-09-01] MEDS: KETOROLAC TROMETHAMINE 30 MG/ML VIAL IV. SCH ×2 (04:09→10:45)
--- NOTE | 2016-09-01 06:29 | Discharge Summary ---
Discharge Summary Date of Service Sep 01, 2016. Discharge Summary Admission Date: Aug 31, 2016 at 08:24 Discharge Date: Sep 01, 2016 Discharge Disposition: Home Primary Diagnosis: fistula in ano Secondary Diagnoses/Problems: Medical Problems: (1) Sepsis Status: Acute Procedures: fistulotomy Discharge Instructions Last Recorded Wt (Kilograms): 70.000 Return to School/Work: limitations (one week) Diet At Discharge: Regular Allergies: Coded Allergies: Clindamycin (Verified Allergy, Unknown, RASH A CHILD, 08/31/16) Molds & Smuts (Verified Allergy, Unknown, MOLD/POLLEN--SNEEZING/WATERY EYES, 08/31/16) POLLEN (Verified Allergy, Unknown, MOLD/POLLEN--SNEEZING/WATERY EYES, ) Home Health Services: none Special Care: Call your doctor if: * Temperature above 101 degrees * Pain not relieved by pain medicine ordered * There is increased drainage or redness from any incision * You have any unanswered questions or concerns. Avoid all tobacco products. If you need help to stop smoking, call [place]'s FREE QUITLINE at . This is a free call. Hospital Course to OR 08/31/16- excision gus cyst and perianal fistulotomy. Has done well overnight- d/c today, office next week. Po atbx. Total time spent on discharge = This includes examination of the patient, discharge planning, medication reconciliation, and communication with other providers.
[2016-09-01 08:08] VITALS: BP 96/78; PULSE 67; TEMP 36.7; O2SAT 96
[2016-09-01 08:15] VITALS: O2SAT 96
[2016-09-01 08:30] VITALS: BP 96/78; PULSE 67; TEMP 36.7; O2SAT 96
[2016-09-01] MEDS: DOCUSATE SODIUM/SENNA 50/8.6MG TAB PO SCH (08:52)
[2016-09-01] MEDS: MAGNESIUM HYDROXIDE SUSP 30 ML UDC PO SCH (08:52)
== END 2016-09-01 12:05 | disposition home or self-care (01) ==
LOC: C.ACU 05:03 → C.MSW 08:24 → ENRESERV 08:57
PROVIDERS: ADMIT Surgery; ATTEND Surgery
DX: K61.1 Rectal abscess (principal); L72.3 Sebaceous cyst; G35 Multiple sclerosis; J45.909 Unspecified asthma, uncomplicated; Z79.899 Other long term (current) drug therapy

== ENCOUNTER → 2016-09-21 | Outpatient (CLI) | payer BC ==
[~2016-09-21] MED LIST changes: +AMOX875T PO; -AUGMENTIN PO; +CEPH500C2 PO; +DALF10TA PO; +GADAVIST IV PRN; +GLAT1INJ INJ; +HYDR-5688 PO; +ONDA4TAB10 SL; +PRED10TA PO; +PRED20TA PO
--- NOTE | 2016-09-21 14:25 | DIAGNOSTIC IMAGING REPORT ---
MRI OF THE BRAIN COMBO CLINICAL HISTORY: Multiple sclerosis. COMPARISON STUDY: MRI of the brain dated 05/01/2013. TECHNIQUE: MRI of the brain was performed utilizing various T1 and T2-weighted sequences in the axial, sagittal, and coronal planes. Contrast-enhanced sequences were acquired following the administration of 7 cc of Gadavist. The examination is performed using the multiple sclerosis protocol. FINDINGS: Brain parenchyma: There are numerous foci of T2 signal abnormality scattered throughout the subcortical and periventricular white matter. This is consistent with the reported clinical history of multiple sclerosis. Lesions have progressed from the 05/01/2013 examination. Lesions in the high left posterior frontal white matter seen on axial high-resolution image #82 and in the left frontal periventricular white matter on image #99 are clearly new from the prior study. At least 4 of these lesions demonstrate postcontrast enhancement is seen on axial images #15 and #18 and coronal images #8 and #13. There is no hemorrhage or mass effect. There is no restricted diffusion typical in appearance for acute ischemia. Several of the White matter lesions demonstrate T2 shine through on the diffusion series. No enhancing mass lesion is identified on the postcontrast images. Neves-white matter differentiation is preserved. No extra-axial fluid collection is seen. The cerebellar tonsils are normal in configuration. Ventricles, sulci, and cisterns: Normal in configuration. Pituitary and sella: Unremarkable. Intracranial vasculature: Normal flow voids are maintained at the skull base. Orbits: The bony orbits are grossly intact. Orbital contents are normal in appearance. Sinuses and mastoids: There are air-fluid levels and mucosal thickening within the maxillary antra. Mucosal thickening and fluid is also seen within the right frontal sinus, the ethmoid sinuses, and the sphenoid sinuses. The mastoid air cells are clear. Calvarium: Unremarkable. Cervical cord: Partially visualized cervical spinal cord is normal in morphology and signal intensity. IMPRESSION: 1. Again seen are numerous T2 hyperintense lesions throughout the subcortical and periventricular white matter which are consistent with the reported clinical history of multiple sclerosis. 2. There has been progression of disease as compared to the 05/01/2013 examination. At least 4 these lesions demonstrate postcontrast enhancement suggesting active demyelination. 3. There is no hemorrhage, mass effect, or evidence of acute ischemia. 4. Pansinusitis as above. Electronically signed by: Parker Winston M.D. 09/21/2016 2:24 PM Dictated Date/Time: 09/21/2016 2:16 PM
== END | disposition home or self-care (01) ==
LOC: C.MRIBC 13:25
PROVIDERS: ATTEND Physician Assistant
DX: G35 Multiple sclerosis (principal)

== ENCOUNTER 2016-10-02 12:12 | Emergency (ER) | payer BC ==
[~2016-10-02 12:12] MED LIST changes: -AMOX875T PO; -DALF10TA PO; -GADAVIST IV PRN; -GLAT1INJ INJ; -ONDA4TAB10 SL; -PRED10TA PO; -PRED20TA PO
[2016-10-02 12:19] VITALS: TEMP 36.9; Ht 167.6 cm
[2016-10-02] MEDS ORDERED: GLAT1INJ INJ (12:39)
[2016-10-02 13:52] LABS: BASO % 0.3 %; BASO ABS # 0.03 K/uL (0-0.2); COMPLETE YES; EOS % 1.8 %; HEMATOCRIT 41.1 % (37-47); IG% 0.2 %; LYMPH % 31.7 %; LYMPH ABS # 3.62 K/uL (1.2-3.4); MEAN CELL VOLUME 88.2 fL (80-100); MEAN CORPUSCULAR HGB CONC 34.1 g/dl (32-36); MEAN PLATELET VOLUME 9.9 fL (7.4-10.4); MONO % 8.8 %; NEUT % 57.2 %; PLATELET COUNT 407 K/uL (130-400); RED BLOOD COUNT 4.66 M/uL (4.2-5.4); WHITE BLOOD COUNT 11.42 K/uL (4.8-10.8)
[2016-10-02 14:01] LABS: BLOOD UREA NITROGEN 12 mg/dl (7-18); BUN/CREATININE RATIO 16.2 (10-20); C-REACTIVE PROTEIN 0.94 mg/dl (0-0.29); CALCIUM 9.5 mg/dl (8.5-10.1); CARBON DIOXIDE 28 mmol/L (21-32); CHLORIDE 102 mmol/L (98-107); CREATININE 0.76 mg/dl (0.60-1.20); GLUCOSE 82 mg/dl (70-99); POTASSIUM 3.9 mmol/L (3.5-5.1); SODIUM 137 mmol/L (136-145)
[2016-10-02 14:04] LABS: ALKALINE PHOSPHATASE 78 U/L (45-117); ALT/SGPT 24 U/L (12-78); AST/SGOT 18 U/L (15-37)
[2016-10-02] MEDS ORDERED: PRED10TA PO (15:11)
--- NOTE | 2016-10-02 15:33 | EMERGENCY ROOM VISIT NOTE ---
History First contact with patient: 12:40 Chief Complaint: BILATERAL LEG WEAKNESS Stated Complaint: CAN'T WALK DUE TO WEAKNESS History of Present Illness The patient is a 46 year old female, history of multiple sclerosis, who presents to the Emergency Room with complaints of a progressing bilateral lower extremity weakness. The patient reports that she had similar weakness approximately one month ago. She underwent a series of 3 IV Solu-Medrol injections approximate 2 weeks ago, and reported significant relief of her symptoms. However, over the past 48 hours, she reports significant decline in bilateral lower extremity strength. She denies any current back pain, paresthesias or numbness of the lower extremities. She denies any recent fever or chills. She is under the management of Dr. Lindquist. She rates her discomfort a 4 out of 10. Review of Systems 10 system review was performed and was negative except for pertinent positives and negatives as indicated in history of present illness Past Medical/Surgical History Medical Problems: (1) [id number] (2) Perirectal abscess (3) PROM (premature rupture of membranes) Family History Diabetes mellitus Hypothyroidism Non-Hodgkin's lymphoma Tuberculosis Social History Smoking Status: Never Smoker Drug Use: none Marital Status: Housing Status: lives with family Occupation Status: employed Current/Historical Medications Scheduled Glatiramer Acetate (Copaxone), 40 MG INJ [id number] Multiple Vitamins W/ Minerals (Multi Adult Gummies), 1 TAB PO QAM Prednisone Tab (Prednisone), 10 MG PO UD Scheduled PRN Albuterol Sulfate (Proair Respiclick), 2 PUFF INH Q4 PRN for SOB/Wheezing Physical Exam Vital Signs Date Time Temp Pulse Resp B/P (MAP) Pulse Ox O2 Delivery O2 Flow Rate FiO2 10/02/16 15:00 72 15 115/64 99 Room Air 10/02/16 13:10 68 15 103/66 99 Room Air 10/02/16 13:10 68 15 103/66 99 Room Air 10/02/16 12:19 36.9 68 20 100 Room Air Physical Exam CONSTITUTIONAL: Healthy and well nourished. Alert and oriented X 3 with positive affect. Patient does not appear in any acute distress. HEENT: Normocephalic, atraumatic. Pupils equal, round and reactive. NECK: Full active range of motion without discomfort. RESPIRATORY: Clear to auscultation bilaterally with no wheezing, crackles, rhonchi or stridor. CARDIOVASCULAR: Regular rate and rhythm with no murmurs, rubs or gallops. GASTROINTESTINAL: Bowel sounds present in all quadrants. MUSCULOSKELETAL: Examination shows no lower extremity edema, erythema, ecchymosis or wounds. INTEGUMENTARY: No rash or other significant dermatologic conditions noted. NEUROLOGIC: No focal neurologic deficits noted. Lower extremity deep tendon reflexes are 2+ and symmetric bilaterally. Medical Decision & Procedures Laboratory Results 10/02/16 13:35 Red Blood Count 4.66, Mean Corpuscular Volume 88.2, Mean Corpuscular Hemoglobin 30.0, Mean Corpuscular Hemoglobin Concent 34.1, Mean Platelet Volume 9.9, Neutrophils (%) (Auto) 57.2, Lymphocytes (%) (Auto) 31.7, Monocytes (%) (Auto) 8.8, Eosinophils (%) (Auto) 1.8, Basophils (%) (Auto) 0.3, Neutrophils # (Auto) 6.54, Lymphocytes # (Auto) 3.62, Monocytes # (Auto) 1.00, Eosinophils # (Auto) 0.21, Basophils # (Auto) 0.03 10/02/16 13:35 Test 10/02/16 13:35 10/02/16 13:43 White Blood Count 11.42 K/uL (4.8-10.8) Red Blood Count 4.66 M/uL (4.2-5.4) Hemoglobin 14.0 g/dL (12.0-16.0) Hematocrit 41.1 % (37-47) Mean Corpuscular Volume 88.2 fL (80-100) Mean Corpuscular Hemoglobin 30.0 pg (25-34) Mean Corpuscular Hemoglobin Concent 34.1 g/dl (32-36) Platelet Count 407 K/uL (130-400) Mean Platelet Volume 9.9 fL (7.4-10.4) Neutrophils (%) (Auto) 57.2 % Lymphocytes (%) (Auto) 31.7 % Monocytes (%) (Auto) 8.8 % Eosinophils (%) (Auto) 1.8 % Basophils (%) (Auto) 0.3 % Neutrophils # (Auto) 6.54 K/uL (1.4-6.5) Lymphocytes # (Auto) 3.62 K/uL (1.2-3.4) Monocytes # (Auto) 1.00 K/uL (0.11-0.59) Eosinophils # (Auto) 0.21 K/uL (0-0.5) Basophils # (Auto) 0.03 K/uL (0-0.2) RDW Standard Deviation 46.1 fL (36.4-46.3) RDW Coefficient of Variation 14.2 % (11.5-14.5) Immature Granulocyte % (Auto) 0.2 % Immature Granulocyte # (Auto) 0.02 K/uL (0.00-0.02) Erythrocyte Sedimentation Rate 44 mm/hr (0-21) Anion Gap 7.0 mmol/L (3-11) Estimated GFR () 110.6 Estimated GFR (Non- 95.4 BUN/Creatinine Ratio 16.2 (10-20) Calcium Level 9.5 mg/dl (8.5-10.1) Total Bilirubin 0.1 mg/dl (0.2-1) Direct Bilirubin < 0.1 mg/dl (0-0.2) Aspartate Amino Transf (AST/SGOT) 18 U/L (15-37) Alanine Aminotransferase (ALT/SGPT) 24 U/L (12-78) Alkaline Phosphatase 78 U/L (45-117) C-Reactive Protein 0.94 mg/dl (0-0.29) Total Protein 8.3 gm/dl (6.4-8.2) Albumin 3.7 gm/dl (3.4-5.0) Bedside Lactic Acid Venous 0.59 mmol/L (0.90-1.70) The above labs were reviewed. Medications Administered Medications (Trade) Dose Ordered Sig/Ranjeet Route Start Time Stop Time Status Last Admin Dose Admin Prednisone (PredniSONE TAB) 60 mg NOW STAT PO 10/02/16 13:15 10/02/16 13:16 DC 10/02/16 14:01 60 MG ED Course Patient history and physical exam were performed. Nurse's notes were reviewed. Vital signs were reviewed and normal. I also reviewed a portion of prior medical records, confirming that the patient was administered site Medrol 1 g IV 3 days, starting on 09/12/16, which was 3 weeks ago. Before starting any additional workup, I did call and speak with Dr. Lindquist via telephone conversation. He does not feel comfortable administering any additional intravenous corticosteroids, and suggested that if the patient can be discharged , she can be placed on a prednisone taper. Otherwise if the patient does not feel that she is able to ambulate, he suggested rehabilitation for the patient. She can follow-up in his office with outpatient management if the patient is in agreement. I did discuss our conversation with the patient, and asked her to consider these options while awaiting lab work. IV access was established, and labs were drawn. The patient was administered prednisone 60 mg orally. Labs were reviewed. Point of care lactic acid is normal. The patient elected to go home, reporting that she was able to walk around her room and to the bathroom. The patient was dispensed a walker to help protect her while ambulating. She was provided a prescription for the prednisone taper as recommended by Dr. Lindquist. The patient reports that she has an appointment this coming Monday, or 3 days from now, with Dr. Lindquist. She was instructed to return for any significant weakness or other concerning symptoms. The patient was happy with plan of care, and voiced understanding of all discharge instructions. Medical Decision Impression Primary Impression: Bilateral leg weakness Additional Impression: Multiple sclerosis exacerbation Departure Information Prescriptions Prednisone Tab (PREDNISONE) 10 Mg Tab 10 MG PO UD, #42 TAB 60 mg x 2d, then 50 mg x 2d, then 40 mg x 2d, then 30 mg x 2d, then 20 mg x 2d, then 10 mg x 2d Prov: Robbie Kilgore PA 10/02/16 Referrals Rossy Thomson MD (PCP) Patient Instructions My [facility] Problem Qualifiers
[2016-10-02 15:45] VITALS: BP 108/67; PULSE 86; O2SAT 96
== END 2016-10-02 15:45 | disposition home or self-care (01) ==
LOC: C.EDB 12:12 → C.EDA 15:45
DX: M62.81 Muscle weakness (generalized) (principal); G35 Multiple sclerosis

== ENCOUNTER → 2016-10-05 | Outpatient (CLI) | payer BC ==
[~2016-10-05] MED LIST changes: +AMOX875T PO; -CEPH500C2 PO; +DALF10TA PO; +GLAT1INJ INJ; -HYDR-5688 PO; +ONDA4TAB10 SL; +PRED10TA PO; +PRED20TA PO
[2016-10-05 13:22] LABS: BLOOD UREA NITROGEN 12 mg/dl (7-18); BUN/CREATININE RATIO 15.4 (10-20); CALCIUM 9.3 mg/dl (8.5-10.1); CARBON DIOXIDE 26 mmol/L (21-32); CHLORIDE 102 mmol/L (98-107); CREATININE 0.76 mg/dl (0.60-1.20); GLUCOSE 127 mg/dl (70-99); POTASSIUM 3.5 mmol/L (3.5-5.1); SODIUM 136 mmol/L (136-145)
== END | disposition home or self-care (01) ==
LOC: C.LAB1850 10:52
PROVIDERS: ATTEND Physician Assistant
DX: G35 Multiple sclerosis (principal)

== ENCOUNTER 2016-10-27 15:23 | Emergency (ER) | payer BC ==
[~2016-10-27] VITALS: Ht 167.6 cm; Wt 72.3 kg
[~2016-10-27 15:23] MED LIST changes: -AMOX875T PO; -DALF10TA PO; -ONDA4TAB10 SL; -PRED20TA PO
[2016-10-27 15:33] VITALS: TEMP 37.5; Ht 167.6 cm; Wt 72.3 kg
[2016-10-27] MEDS ORDERED: KETOROLAC TROMETHAMINE 30 MG/ML VIAL IV STA (15:44)
[2016-10-27] MEDS ORDERED: SODIUM CHLORIDE 0.9% 1000ML 1,000 ML IV ONE (15:45)
[2016-10-27] MEDS ORDERED: DALF10TA PO (16:13)
--- NOTE | 2016-10-27 16:54 | DIAGNOSTIC IMAGING REPORT ---
CHEST 2 VIEWS ROUTINE HISTORY: 46 years-old Female acute cough and fever. COMPARISON: Chest radiograph 03/20/2016. TECHNIQUE: Frontal and lateral views of the chest. FINDINGS: Patient is slightly rotated to the left. Cardiac silhouette is within normal limits. The lungs are hyperinflated. There is no pneumothorax or pleural effusion. Subtle subsegmental reticular nodular upper lobe and right lateral lung base opacities are again seen without significant change from comparison. There is probable subsegmental atelectasis of the left lung base. The bones are grossly intact. IMPRESSION: Persistent subtle subsegmental reticular nodular opacities of the upper lobes and lateral aspect right lung base are noted appearing similar from comparison study 03/20/2016 suggesting pneumonitis. The above report was generated using voice recognition software. It may contain grammatical, syntax or spelling errors. Electronically signed by: Francisco Hampton M.D. 10/27/2016 4:52 PM Dictated Date/Time: 10/27/2016 4:49 PM
[2016-10-27 17:18] LABS: BASO % 0.1 %; BASO ABS # 0.03 K/uL (0-0.2); COMPLETE YES; EOS % 0.2 %; HEMATOCRIT 37.1 % (37-47); IG% 0.4 %; LYMPH % 6.4 %; LYMPH ABS # 1.46 K/uL (1.2-3.4); MEAN CELL VOLUME 86.9 fL (80-100); MEAN CORPUSCULAR HEMOGLOBIN 30.4 pg (25-34); MEAN PLATELET VOLUME 9.7 fL (7.4-10.4); MONO % 7.4 %; NEUT % 85.5 %; PLATELET COUNT 352 K/uL (130-400); RED BLOOD COUNT 4.27 M/uL (4.2-5.4); WHITE BLOOD COUNT 22.83 K/uL (4.8-10.8)
[2016-10-27 17:35] LABS: CREATININE 0.57 mg/dl (0.60-1.20); POTASSIUM 3.5 mmol/L (3.5-5.1)
[2016-10-27 17:38] LABS: ALB/GLOB RATIO 0.8 (0.9-2)
[2016-10-27] MEDS ORDERED: ONDA4TAB10 SL (18:10)
[2016-10-27] MEDS ORDERED: PRED20TA PO (18:10)
[2016-10-27] MEDS ORDERED: AMOX875T PO (18:10)
[2016-10-27] MEDS ORDERED: ONDANSETRON HOME PACK 4MG OD TAB PO ONE (18:15)
[2016-10-27] MEDS ORDERED: AMOXICIL/CLAVU 875MG HOME PACK PO ONE (18:15)
[2016-10-27 18:32] LABS: URINE APPEARANCE CLEAR (CLEAR); URINE BILIRUBIN NEG (NEG); URINE COLOR YELLOW; URINE EPITHELIAL CELL AUTO >30 /lpf (0-5); URINE NITRITE NEG (NEG); URINE SPECIFIC GRAVITY 1.015 (1.000-1.030); UROBILINOGEN NEG (NEG); ZZUR CULT IF INDIC CLEAN CATCH NO
[2016-10-27 18:34] LABS: MANUAL MICROSCOPIC REQUIRED? NO; REVIEW REQ? NO
[2016-10-27 18:35] VITALS: BP 103/64; PULSE 109; O2SAT 94
--- NOTE | 2016-10-28 14:03 | EMERGENCY ROOM VISIT NOTE ---
History First contact with patient: 15:32 Chief Complaint: FALL Stated Complaint: LEG WEAKNESS, History of Present Illness The patient is a 46 year old female who presents to the Emergency Room with multiple complaints. The patient has a history of multiple sclerosis and has had intermittent leg weakness. She started Ampyra for this about 3 weeks ago, and states this has somewhat improved her weakness. She indicates that over the past one to 2 days she has had a low-grade fever, but she does not have a thermometer to tell me what her maximum temperature has been at home. The patient reports having right ear pain for the past day that she rates a 7/10. She also reports having a ground-level "fall", where she stumbled into the side of a pack and play causing mild contusion to the left side chest wall. The patient is also experiencing a dry cough which is worse over the past few days. She has not been taking anything [id number] for her symptoms. She does not identify aggravating or alleviating factors. Review of Systems More than 10 systems were reviewed and otherwise negative with the exception of history of present illness. Past Medical/Surgical History Medical Problems: (1) [id number] (2) Perirectal abscess (3) PROM (premature rupture of membranes) Family History Diabetes mellitus Hypothyroidism Non-Hodgkin's lymphoma Tuberculosis Social History Smoking Status: Never Smoker Drug Use: none Marital Status: Housing Status: lives with family Occupation Status: employed Current/Historical Medications Scheduled Amoxicillin & Pot Clavulanate (Augmentin 875-125 mg), 1 TAB PO BID Dalfampridine (Ampyra), Unknown Dose PO DAILY Glatiramer Acetate (Copaxone), 40 MG INJ 3XWK Multiple Vitamins W/ Minerals (Multi Adult Gummies), 1 TAB PO QAM Ondasetron Odt (Zofran Odt), 4 MG SL Q6H Prednisone (Prednisone), 0 PO DAILY Scheduled PRN Albuterol Sulfate (Proair Respiclick), 2 PUFF INH Q4 PRN for SOB/Wheezing Physical Exam Vital Signs Date Time Temp Pulse Resp B/P (MAP) Pulse Ox O2 Delivery O2 Flow Rate FiO2 10/27/16 18:35 109 20 103/64 94 Room Air 10/27/16 18:29 109 20 103/64 94 10/27/16 17:47 103 22 99/60 95 Room Air 10/27/16 16:47 103 10/27/16 16:21 101 22 119/73 98 Room Air 10/27/16 15:33 37.5 107 20 112/91 95 Room Air Pain Rating (0-10): 4.0 Physical Exam VITALS: Vitals are noted on the nurse's note and reviewed by myself. Vital signs stable. GENERAL: Well-developed, well-nourished, white female, who is in no acute distress and resting comfortably. Patient is cooperative with the examination. EARS: External ear normal. Cerumen appreciated in the bilateral external canals. The right TM is about 50% visualized inferiorly, and this does appear erythematous and bulging. No mastoid tenderness. NECK: Supple without nuchal rigidity. No lymphadenopathy. No thyromegaly. Cervical spine is nontender. HEART: Regular rate and rhythm without murmurs gallops or rubs. LUNGS: Slightly coarse lung sounds in the upper costa. Lower costa are clear. No significant wheezing. ABDOMEN: Positive normal bowel sounds x 4. Soft, nontender, without masses or organomegaly. No guarding or rebound tenderness. MUSCULOSKELETAL: No muscle atrophy, erythema, or edema noted. NEURO: Patient was alert and oriented to person place and time. Medical Decision & Procedures ER Provider Diagnostic Interpretation: CHEST 2 VIEWS ROUTINE HISTORY: 46 years-old Female acute cough and fever. COMPARISON: Chest radiograph 03/20/2016. TECHNIQUE: Frontal and lateral views of the chest. FINDINGS: Patient is slightly rotated to the left. Cardiac silhouette is within normal limits. The lungs are hyperinflated. There is no pneumothorax or pleural effusion. Subtle subsegmental reticular nodular upper lobe and right lateral lung base opacities are again seen without significant change from comparison. There is probable subsegmental atelectasis of the left lung base. The bones are grossly intact. IMPRESSION: Persistent subtle subsegmental reticular nodular opacities of the upper lobes and lateral aspect right lung base are noted appearing similar from comparison study 03/20/2016 suggesting pneumonitis. Laboratory Results 10/27/16 17:03 Red Blood Count 4.27, Mean Corpuscular Volume 86.9, Mean Corpuscular Hemoglobin 30.4, Mean Corpuscular Hemoglobin Concent 35.0, Mean Platelet Volume 9.7, Neutrophils (%) (Auto) 85.5, Lymphocytes (%) (Auto) 6.4, Monocytes (%) (Auto) 7.4, Eosinophils (%) (Auto) 0.2, Basophils (%) (Auto) 0.1, Neutrophils # (Auto) 19.50, Lymphocytes # (Auto) 1.46, Monocytes # (Auto) 1.70, Eosinophils # (Auto) 0.04, Basophils # (Auto) 0.03 10/27/16 17:03 Test 10/27/16 17:03 10/27/16 17:14 10/27/16 18:20 White Blood Count 22.83 K/uL (4.8-10.8) Red Blood Count 4.27 M/uL (4.2-5.4) Hemoglobin 13.0 g/dL (12.0-16.0) Hematocrit 37.1 % (37-47) Mean Corpuscular Volume 86.9 fL (80-100) Mean Corpuscular Hemoglobin 30.4 pg (25-34) Mean Corpuscular Hemoglobin Concent 35.0 g/dl (32-36) Platelet Count 352 K/uL (130-400) Mean Platelet Volume 9.7 fL (7.4-10.4) Neutrophils (%) (Auto) 85.5 % Lymphocytes (%) (Auto) 6.4 % Monocytes (%) (Auto) 7.4 % Eosinophils (%) (Auto) 0.2 % Basophils (%) (Auto) 0.1 % Neutrophils # (Auto) 19.50 K/uL (1.4-6.5) Lymphocytes # (Auto) 1.46 K/uL (1.2-3.4) Monocytes # (Auto) 1.70 K/uL (0.11-0.59) Eosinophils # (Auto) 0.04 K/uL (0-0.5) Basophils # (Auto) 0.03 K/uL (0-0.2) RDW Standard Deviation 42.4 fL (36.4-46.3) RDW Coefficient of Variation 13.3 % (11.5-14.5) Immature Granulocyte % (Auto) 0.4 % Immature Granulocyte # (Auto) 0.10 K/uL (0.00-0.02) Anion Gap 7.0 mmol/L (3-11) Est Creatinine Clear Calc Drug Dose 128.2 ml/min Estimated GFR () 130.7 Estimated GFR (Non- 112.7 BUN/Creatinine Ratio 14.0 (10-20) Calcium Level 9.0 mg/dl (8.5-10.1) Total Bilirubin 0.3 mg/dl (0.2-1) Aspartate Amino Transf (AST/SGOT) 14 U/L (15-37) Alanine Aminotransferase (ALT/SGPT) 23 U/L (12-78) Alkaline Phosphatase 80 U/L (45-117) Total Protein 7.6 gm/dl (6.4-8.2) Albumin 3.3 gm/dl (3.4-5.0) Globulin 4.3 gm/dl (2.5-4.0) Albumin/Globulin Ratio 0.8 (0.9-2) Bedside Lactic Acid Venous 1.19 mmol/L (0.90-1.70) Urine Color YELLOW Urine Appearance CLEAR (CLEAR) Urine pH 7.0 (4.5-7.5) Urine Specific Henrietta 1.015 (1.000-1.030) Urine Protein NEG (NEG) Urine Glucose (UA) NEG (NEG) Urine Ketones TRACE (NEG) Urine Occult Blood NEG (NEG) Urine Nitrite NEG (NEG) Urine Bilirubin NEG (NEG) Urine Urobilinogen NEG (NEG) Urine Leukocyte Esterase SMALL (NEG) Urine WBC (Auto) 5-10 /hpf (0-5) Urine RBC (Auto) 0-4 /hpf (0-4) Urine Hyaline Casts (Auto) 0 /lpf (0-5) Urine Epithelial Cells (Auto) >30 /lpf (0-5) Urine Bacteria (Auto) NEG (NEG) Medications Administered Medications (Trade) Dose Ordered Sig/Ranjeet Route Start Time Stop Time Status Last Admin Dose Admin Sodium Chloride 1,000 ml @ 999 mls/hr Q1H1M ONCE IV 10/27/16 15:45 10/27/16 16:45 DC 10/27/16 16:15 999 MLS/HR Ketorolac Tromethamine (Toradol Inj) 30 mg NOW STAT IV 10/27/16 15:44 10/27/16 15:48 DC 10/27/16 16:14 30 MG Amoxicillin/ Clavulanate Potassium (Augmentin 875MG Home Pack) 1 homepack UD ONCE PO 10/27/16 18:15 10/27/16 18:16 DC 10/27/16 18:23 1 HOMEPACK Ondansetron HCl (ZOFRAN ODT 4MG Home Pack) 1 homepack UD ONCE PO 10/27/16 18:15 10/27/16 18:16 DC 10/27/16 18:23 1 HOMEPACK ED Course Physical exam and history were performed. Nursing notes, EMR, and Medication List were personally reviewed. Patient appears to have a few reasons for coming to the emergency department today. On examination she does appear to have a right otitis media. She does not have significant left-sided chest injury after a reported fall at home. My concern is the patient is with a history of MS, and she reports a subjective fever. She does not feel like she is having an MS flare, and neurologically appears intact at this point. IV access was established and labs were obtained. Blood cultures were drawn. The patient was hydrated and medicated as above. Chest x-ray was performed. The patient's blood work is as above and was reviewed. She does have a notably elevated white blood cell count of 22,000, which is significantly higher from labs drawn 3 weeks ago when she had an 11,000 white count. Lactic is negative with blood cultures pending. Urine is without obvious signs of infection. Chest x-ray shows some pneumonitis, however there is question versus the acuity of this. The case was discussed with attending physician, Dr. Shaver. On reevaluation the patient did feel better after Toradol and hydration. I discussed her findings with her, and will start her on a course of Augmentin as she certainly has a right otitis media. I am unsure of the significance of her white blood cell count, and strongly feel that she needs very close follow-up, preferably tomorrow, with her primary care physician. The patient will also be given a course of prednisone. She was thoroughly invited back to the emergency department with any new, worsening, or concerning symptoms. The chart was completed utilizing [employer] Voice Recognition Software. Grammatical errors, random word insertions, pronoun errors, and incomplete sentences are an occasional consequence of this system due to software limitations, ambient noise, and hardware issues. Any formal questions or concerns about the content, text, or information contained within the body of this dictation should be directly addressed to the provider for clarification. . Medical Decision Differential diagnosis: Etiologies such as viral syndrome, otitis, pharyngitis, pneumonia, influenza, meningitis, urinary tract infection, sepsis, bacteremia, as well as others were entertained. Impression Primary Impression: Right otitis media Additional Impressions: Fall Pneumonitis Departure Information Dispostion Home / Self-Care Condition FAIR Prescriptions Prednisone (Prednisone) 20 Mg Tab 0 PO DAILY, #18 TAB 3 DAILY FOR 3 DAYS, THEN 2 DAILY FOR 3 DAYS, THEN 1 DAILY FOR 3 DAYS. Prov: Jitendra Baron PA-C 10/27/16 Ondasetron Odt (ZOFRAN ODT) 4 Mg Tab 4 MG SL Q6H for Nausea, #12 TAB Prov: Jitendra Baron PA-C 10/27/16 Amoxicillin & Pot Clavulanate (Augmentin 875-125 mg) 1 Tab Tab 1 TAB PO BID for 9 Days, #18 TAB Prov: Jitendra Baron PA-C 10/27/16 Forms HOME CARE DOCUMENTATION FORM, IMPORTANT VISIT INFORMATION Patient Instructions My [facility] Additional Instructions You were seen and evaluated today on an emergency basis only. This is not a substitute for, or an effort to provide, complete comprehensive medical care. It is not possible to recognize and treat all injuries or illnesses in a single emergency department visit. For this reason it is recommended that you followup with your primary care physician in the next 1-2 days for recheck of your condition. Amoxicillin Clavulanate (Augmentin) 875mg: Take one pill twice daily for 10 days for your infection. All antibiotics can cause diarrhea. If this occurs and you feel worse or it does not resolve in 1-2 days follow up with your doctor or return to the Emergency Department as this could be signs of serious underlying problems. Any medication can cause an allergic reaction, stop the pills immediately and return to the ER for rash, hives, breathing difficulties, or swelling. Zofran 1 tablet every 6 hrs as needed for nausea. Take prednisone as prescribed You are welcome to return to the emergency department anytime with new, worsening, or concerning symptoms. Problem Qualifiers
== END 2016-10-27 18:34 | disposition home or self-care (01) ==
LOC: EDBD 15:23 → C.EDC 15:24
DX: H66.91 Otitis media, unspecified, right ear (principal); J18.9 Pneumonia, unspecified organism; M62.81 Muscle weakness (generalized); G35 Multiple sclerosis; Z79.899 Other long term (current) drug therapy; Z80.7 Family history of other malignant neoplasms of lymphoid, hematopoietic and related tissues; Z83.1 Family history of other infectious and parasitic diseases; Z83.3 Family history of diabetes mellitus; Z83.49 Family history of other endocrine, nutritional and metabolic diseases; W19.XXXA Unspecified fall, initial encounter

== ENCOUNTER → 2016-11-17 | Outpatient (CLI) | payer BC ==
[~2016-11-17] MED LIST changes: +DALF10TA PO; +ONDA4TAB10 SL; -PRED10TA PO; +PRED20TA PO
[2016-11-17 09:46] LABS: URINE APPEARANCE CLEAR (CLEAR); URINE BILIRUBIN NEG (NEG); URINE COLOR YELLOW; URINE NITRITE NEG (NEG); URINE PH 6.5 (4.5-7.5); URINE SPECIFIC GRAVITY 1.014 (1.000-1.030); UROBILINOGEN NEG (NEG)
[2016-11-17 10:02] LABS: MANUAL MICROSCOPIC REQUIRED? NO; REVIEW REQ? NO
== END | disposition home or self-care (01) ==
LOC: C.LAB1850 07:06
PROVIDERS: ATTEND Family Medicine
DX: R39.15 Urgency of urination (principal)

== ENCOUNTER → 2017-02-13 | Outpatient (CLI) | payer BC ==
[2017-02-13 10:00] LABS: BASO % 0.5 %; BASO ABS # 0.05 K/uL (0-0.2); COMPLETE YES; EOS % 1.8 %; HEMATOCRIT 38.6 % (37-47); IG% 0.2 %; LYMPH % 33.3 %; LYMPH ABS # 3.42 K/uL (1.2-3.4); MEAN CELL VOLUME 88.5 fL (80-100); MEAN CORPUSCULAR HEMOGLOBIN 29.8 pg (25-34); MEAN CORPUSCULAR HGB CONC 33.7 g/dl (32-36); MEAN PLATELET VOLUME 9.9 fL (7.4-10.4); MONO % 7.9 %; NEUT % 56.3 %; PLATELET COUNT 442 K/uL (130-400); RED BLOOD COUNT 4.36 M/uL (4.2-5.4); WHITE BLOOD COUNT 10.27 K/uL (4.8-10.8)
[2017-02-13 10:16] LABS: CHOLESTEROL/HDL RATIO 2.9
== END | disposition home or self-care (01) ==
LOC: C.LAB1850 07:08
PROVIDERS: ATTEND Family Medicine
DX: G35 Multiple sclerosis (principal); D64.9 Anemia, unspecified; Z13.220 Encounter for screening for lipoid disorders